=== PATIENT | male | born 1955 | race Caucasian/White ===

== ENCOUNTER 2016-11-28 13:09 | Inpatient (IN) | payer BC ==
[2016-11-28] MEDS ORDERED: methylPREDNISolone SOD SUCCI 125 MG/2 ML VIAL IV STA (13:37)
[2016-11-28] MEDS ORDERED: IPRATROPIUM-ALBUTEROL 3 ML NEB INHALATION STA (13:37)
[2016-11-28] MEDS ORDERED: ACETAMINOPHEN TAB 500 MG TAB PO STA (13:38)
[2016-11-28] MEDS ORDERED: LEVOFLOXACIN 500MG-D5W PMX 500 MG in DEXTROSE/WATER 1 100ML.BAG IVPB STA (13:52)
--- NOTE | 2016-11-28 13:55 | ED ---
General Adult HPI - General Source: patient, RN notes reviewed Mode of arrival: EMS Limitations: no limitations <Eriberto Benito - Last Filed: 11/28/16 15:06> <Dhruv Groves - Last Filed: 11/28/16 15:27> - General Chief complaint: Shortness of Breath Stated complaint: pneumonia Time Seen by Provider: 11/28/16 13:31 - History of Present Illness Initial comments: Patient 61-year-old male significant past medical history for COPD, who presents emergency room today by EMS, the chief complaint of pneumonia. Patient was at the family doctor's office had a chest x-ray obtained showing a left lobe pneumonia. Patient pulse ox was low at the doctor's office and was transferred by EMS. Patient did have breathing treatment at the office which improved some symptoms. Patient does admit to cough congestion over the last 4 days. Patient does admit to body aches and fever. He denies any other complaints. Patient denies any recent chest pain, back pain, abdominal pain, nausea or vomiting, numbness or tingling, dysuria or hematuria, constipation or diarrhea, headaches or visual changes, or any other complaints. (Eriberto Benito) - Related Data Home Medications Medication Instructions Recorded Confirmed Advair Inhaler 1 puff INHALATION RT-BID 01/06/15 01/06/15 Cholecalciferol [Vitamin D3] 5,000 unit PO HS 01/06/15 01/06/15 Diltiazem HCl [Cardizem] 90 mg PO HS 01/06/15 01/06/15 Losartan Potassium 50 mg PO HS 01/06/15 01/06/15 Simvastatin 40 mg PO HS 01/06/15 01/06/15 Tiotropium [place] [Spiriva] 1 puff IH RT-DAILY 01/06/15 01/06/15 Previous Rx's Medication Instructions Recorded Azithromycin [Zithromax] 500 mg PO DAILY #5 tab 01/08/15 Nicotine 21Mg/24Hr Patch [Habitrol] 1 patch TRANSDERM DAILY #14 patch 01/08/15 predniSONE 0 mg PO DIRECTED #30 tab 01/08/15 Albuterol Nebulized [Ventolin 2.5 mg INHALATION Q6H #120 nebu 01/09/15 Nebulized] Allergies Allergy/AdvReac Type Severity Reaction Status Date / Time No Known Allergies Allergy Verified 11/28/16 13:50 Review of Systems ROS Other: All systems not noted in ROS Statement are negative. <Eriberto Benito - Last Filed: 11/28/16 15:06> ROS Other: All systems not noted in ROS Statement are negative. <GermainDhruv B - Last Filed: 11/28/16 15:27> ROS Statement: Those systems with pertinent positive or pertinent negative responses have been documented in the HPI. 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, POLYPS REMOVED/BENIGN, NEPHROLITHIASIS History of Any Multi-Drug Resistant Organisms: None Reported Past Surgical History: Adenoidectomy, Cholecystectomy, Tonsillectomy Additional Past Surgical History / Comment(s): COLONOSCOPY Past Anesthesia/Blood Transfusion Reactions: No Reported Reaction Past Psychological History: No Psychological Hx Reported Smoking Status: Current every day smoker Past Alcohol Use History: None Reported Additional Past Alcohol Use History / Comment(s): STARTED SMOKING AT AGe 15- AND HE SMOKES 1 PPD Past Drug Use History: None Reported - Past Family History Mother Family Medical History: Cancer, Hypertension Additional Family Medical History / Comment(s): BREAST CANCER Sister(s) Family Medical History: Cancer Additional Family Medical History / Comment(s): BREAST Father Family Medical History: Hyperlipidemia, Myocardial Infarction ([place]) Additional Family Medical History / Comment(s): aneurysm, <Eriberto Benito - Last Filed: 11/28/16 15:06> General Exam Limitations: no limitations <Eriberto Benito - Last Filed: 11/28/16 15:06> General appearance: alert, in no apparent distress Head exam: Present: atraumatic, normocephalic, normal inspection Eye exam: Present: normal appearance, PERRL, EOMI. Absent: scleral icterus, conjunctival injection, periorbital swelling ENT exam: Present: normal exam, mucous membranes dry Neck exam: Present: normal inspection. Absent: tenderness, meningismus, lymphadenopathy Respiratory exam: Present: normal lung sounds bilaterally, respiratory distress , wheezes, accessory muscle use, decreased breath sounds, prolonged expiratory. Absent: rales, rhonchi, stridor Cardiovascular Exam: Present: regular rate, normal rhythm, tachycardia, normal heart sounds. Absent: systolic murmur, diastolic murmur, rubs, gallop, clicks GI/Abdominal exam: Present: soft, normal bowel sounds. Absent: distended, tenderness, guarding, rebound, rigid Extremities exam: Present: normal inspection, full ROM, normal capillary refill. Absent: tenderness, pedal edema, joint swelling, calf tenderness Back exam: Present: normal inspection Neurological exam: Present: alert, oriented X3, CN II-XII intact Psychiatric exam: Present: normal affect, normal mood Skin exam: Present: warm, dry, intact, normal color. Absent: rash <Dhruv Groves - Last Filed: 11/28/16 15:27> - General Exam Comments Initial Comments: General: The patient is awake and alert, in no distress, and does not appear acutely ill. Eye: Pupils are equal, round and reactive to light, extra-ocular movements are intact. No nystagmus. There is normal conjunctiva bilaterally. No signs of icterus. Ears, nose, mouth and throat: There are moist mucous membranes and no oral lesions. Neck: The neck is supple, there is no tenderness or JVD. Cardiovascular: There is a regular rate and rhythm. No murmur, rub or gallop is appreciated. Respiratory: Increased expiratory wheeze on the left. respirations are non- labored, breath sounds are equal. Nostridor, rales, or rhonchi. Gastrointestinal: Soft, non-distended, non-tender abdomen without masses or organomegaly noted. There is no rebound or guarding present. No CVA tenderness. Bowel sounds are unremarkable. Musculoskeletal: Normal ROM, no tenderness. Strength 5/5. Sensation intact. Pulses equal bilaterally 2+. Neurological: A&O x 3. CN II-XII intact, There are no obvious motor or sensory deficits. Coordination appears grossly intact. Speech is normal. Skin: Skin is warm and dry and no rashes or lesions are noted. Psychiatric: Cooperative, appropriate mood & affect, normal judgment. (Eriberto Benito) Course <Eriberto Benito - Last Filed: 11/28/16 15:06> <Dhruv Groves - Last Filed: 11/28/16 15:27> Vital Signs 11/28/16 11/28/16 11/28/16 13:40 14:27 14:35 Temperature 103.6 F H Pulse Rate 109 H 102 H 97 Respiratory 22 22 22 Rate Blood Pressure 149/71 166/75 O2 Sat by Pulse 93 L 91 L Oximetry 11/28/16 11/28/16 14:50 15:01 Temperature Pulse Rate 98 98 Respiratory Rate Blood Pressure O2 Sat by Pulse Oximetry - Reevaluation(s) Reevaluation #1: 11/28/16 15:26 Patient showing mild improvement after prolonged breathing treatment (Dhruv Groves) Medical Decision Making - Lab Data Result diagrams: 11/28/16 14:20 11/28/16 14:20 <Eriberto Benito - Last Filed: 11/28/16 15:06> - Lab Data Result diagrams: 11/28/16 14:20 11/28/16 14:20 <Dhruv Groves - Last Filed: 11/28/16 15:27> - Medical Decision Making Case discussed in detail with attending physician Dr. Groves.Patient's chest x- ray from outpatient was reviewed and does show a left sided pneumonia. Patient started on antibiotics of Levaquin and Zosyn here in the emergency room. Patient said labs obtained. Blood cultures pending. Patient will be admitted continued on broad-spectrum antibiotics and breathing treatments. (Eriberto Benito) 61 male ER for evaluation of severe pneumonia with COPD, hypoxia, patient will be admitted for fever control, fluid resuscitation and IV antibiotics. Continue breathing treatments and steroids. Patient will be monitored for cardiopulmonary resuscitation and evaluation (Dhruv Groves) - Lab Data Lab Results 11/28/16 11/28/16 11/28/16 Range/Units 14:20 14:20 14:20 WBC 9.0 (3.8-10.6) k/uL RBC 5.60 (4.30-5.90) m/uL Hgb 17.1 (13.0-17.5) gm/dL Hct 54.4 H (39.0-53.0) % MCV 97.0 (80.0-100.0) fL MCH 30.5 (25.0-35.0) pg MCHC 31.4 (31.0-37.0) g/dL RDW 14.6 (11.5-15.5) % Plt Count 139 L (150-450) k/uL Neutrophils % 83 % Lymphocytes % 8 % Monocytes % 7 % Eosinophils % 0 % Basophils % 0 % Neutrophils # 7.4 (1.3-7.7) k/uL Lymphocytes # 0.7 L (1.0-4.8) k/uL Monocytes # 0.6 (0-1.0) k/uL Eosinophils # 0.0 (0-0.7) k/uL Basophils # 0.0 (0-0.2) k/uL PT 12.0 (9.0-12.0) sec INR 1.2 (<1.1) APTT 26.5 (22.0-30.0) sec Sodium 135 L (137-145) mmol/L Potassium 4.6 (3.5-5.1) mmol/L Chloride 93 L (98-107) mmol/L Carbon Dioxide 33 H (22-30) mmol/L Anion Gap 9 mmol/L BUN 26 H (9-20) mg/dL Creatinine 1.28 H (0.66-1.25) mg/dL Est GFR (MDRD) Af Amer >60 (>60 ml/min/1.73 sqM) Est GFR (MDRD) Non-Af 57 (>60 ml/min/1.73 sqM) Glucose 154 H (74-99) mg/dL Plasma Lactic Acid Renard (0.7-2.0) mmol/L Calcium 8.5 (8.4-10.2) mg/dL Magnesium 2.0 (1.6-2.3) mg/dL Total Bilirubin 0.7 (0.2-1.3) mg/dL AST 42 (17-59) U/L ALT 45 (21-72) U/L Alkaline Phosphatase 67 (38-126) U/L Troponin I (0.000-0.034) ng/mL NT-Pro-B Natriuret Pep pg/mL Total Protein 6.7 (6.3-8.2) g/dL Albumin 3.7 (3.5-5.0) g/dL 11/28/16 11/28/16 11/28/16 Range/Units 14:20 14:20 14:20 WBC (3.8-10.6) k/uL RBC (4.30-5.90) m/uL Hgb (13.0-17.5) gm/dL Hct (39.0-53.0) % MCV (80.0-100.0) fL MCH (25.0-35.0) pg MCHC (31.0-37.0) g/dL RDW (11.5-15.5) % Plt Count (150-450) k/uL Neutrophils % % Lymphocytes % % Monocytes % % Eosinophils % % Basophils % % Neutrophils # (1.3-7.7) k/uL Lymphocytes # (1.0-4.8) k/uL Monocytes # (0-1.0) k/uL Eosinophils # (0-0.7) k/uL Basophils # (0-0.2) k/uL PT (9.0-12.0) sec INR (<1.1) APTT (22.0-30.0) sec Sodium (137-145) mmol/L Potassium (3.5-5.1) mmol/L Chloride (98-107) mmol/L Carbon Dioxide (22-30) mmol/L Anion Gap mmol/L BUN (9-20) mg/dL Creatinine (0.66-1.25) mg/dL Est GFR (MDRD) Af Amer (>60 ml/min/1.73 sqM) Est GFR (MDRD) Non-Af (>60 ml/min/1.73 sqM) Glucose (74-99) mg/dL Plasma Lactic Acid Renard 1.5 (0.7-2.0) mmol/L Calcium (8.4-10.2) mg/dL Magnesium (1.6-2.3) mg/dL Total Bilirubin (0.2-1.3) mg/dL AST (17-59) U/L ALT (21-72) U/L Alkaline Phosphatase (38-126) U/L Troponin I 0.041 H* (0.000-0.034) ng/mL NT-Pro-B Natriuret Pep 300 pg/mL Total Protein (6.3-8.2) g/dL Albumin (3.5-5.0) g/dL Critical Care Time Critical Care Time: Yes Total Critical Care Time: 31 <Dhruv Groves - Last Filed: 11/28/16 15:27> Disposition Time of Disposition: 15:00 <Eriberto Benito - Last Filed: 11/28/16 15:06> <Dhruv Groves - Last Filed: 11/28/16 15:27> Clinical Impression: Community acquired pneumonia Disposition: ADMITTED IP TO THIS HOSP Condition: Good Referrals: Nick Santo MD [Primary Care Provider] - 1-2 days
[2016-11-28] MEDS ORDERED: SODIUM CHLORIDE 0.9% 500 ML IV STA (14:17)
[2016-11-28] MEDS ORDERED: SODIUM CHLORIDE 0.9% 1,000 ML IV STA ×2 (14:17)
[2016-11-28] MEDS ORDERED: IBUPROFEN 800 MG TAB PO STA (14:17)
[2016-11-28] MEDS ORDERED: ALBUTEROL NEBULIZED 2.5 MG/3 ML INHALATION STA (14:18)
[2016-11-28] MEDS ORDERED: IPRATROPIUM 0.5 MG/2.5 ML NEBU INHALATION STA (14:18)
[2016-11-28] MEDS ORDERED: PIPERACILLIN-TAZOBACTAM 3.375 GM in DEXTROSE/WATER 1 50ML.BAG IVPB STA (14:21)
[2016-11-28 14:39] LABS: Basophils % (A) 0 %; CH 31.3; CHCM 32.4; Eosinophils % (A) 0 %; HCT 54.4 % (39.0-53.0); HDW 2.58; HGB 17.1 gm/dL (13.0-17.5); Luc % (Auto) 2; Lymphocytes # (A) 0.7 k/uL (1.0-4.8); Lymphocytes % (A) 8 %; MCH 30.5 pg (25.0-35.0); MCHC 31.4 g/dL (31.0-37.0); Mean Platelet Volume 7.6; Monocytes # (A) 0.6 k/uL (0-1.0); Monocytes % (A) 7 %; Neutrophils # (A) 7.4 k/uL (1.3-7.7); Neutrophils % (A) 83 %; RDW 14.6 % (11.5-15.5); WBC (Perox) 9.55
[2016-11-28 14:47] LABS: ALT 45 U/L (21-72); AST 42 U/L (17-59); Alkaline Phosphatase 67 U/L (38-126); Anion Gap 9 mmol/L; Blood Urea Nitrogen 26 mg/dL (9-20); Calcium 8.5 mg/dL (8.4-10.2); Carbon Dioxide 33 mmol/L (22-30); Chloride 93 mmol/L (98-107); Glucose 154 mg/dL (74-99); Non-African American GFR(MDRD) 57 (>60 ml/min/1.73 sqM); Potassium 4.6 mmol/L (3.5-5.1); Sodium 135 mmol/L (137-145); Total Bilirubin 0.7 mg/dL (0.2-1.3); Total Protein 6.7 g/dL (6.3-8.2)
[2016-11-28 14:49] LABS: INR 1.2 (<1.1); Partial Thromboplastin Time 26.5 sec (22.0-30.0)
[2016-11-28] MEDS ORDERED: SODIUM CHLORIDE 0.9% 1,000 ML IV ONE (15:01)
--- NOTE | 2016-11-28 15:38 | XR ---
EXAMINATION TYPE: XR chest 2V DATE OF EXAM: 11/28/2016 3:33 PM COMPARISON: 11/28/2016 TECHNIQUE: PA and lateral views submitted. HISTORY: Cough FINDINGS: Large area of consolidation with central lucency. Pleural-based thickening deformity of the right rib cage. Underlying COPD seen. Heart is enlarged. Left lower lobe infiltrate and tiny effusion noted. IMPRESSION: 1. Large area of consolidation with possible central cavitation may represent pneumonia or neoplasm. 2. Left lower lobe infiltrate. 3. COPD. 4. Cardiomegaly.
--- NOTE | 2016-11-28 16:26 | ED ---
Medical Decision Making - Medical Decision Making Case discussed in detail with attending physician Dr. Groves. Patient's troponin mildly elevated 0.041. CK MB index negative. Patient started on IV antibiotics also IV steroids and continue breathing treatments. Cardiology consult for elevated troponin. He does not have any chest pain. Does admit to improvement after breathing treatments here. He'll be continued to be monitored. EKG performed at 1536: Shows sinus tachycardia 104 bpm. Shows occasional PVCs. NM 134. QRS 94. QT/QTC 344/452. No acute ST changes as compared to previous EKG on 01/06/2015. - Lab Data Result diagrams: 11/28/16 14:20 11/28/16 14:20 Lab Results 11/28/16 11/28/16 11/28/16 Range/Units 14:20 14:20 14:20 WBC 9.0 (3.8-10.6) k/uL RBC 5.60 (4.30-5.90) m/uL Hgb 17.1 (13.0-17.5) gm/dL Hct 54.4 H (39.0-53.0) % MCV 97.0 (80.0-100.0) fL MCH 30.5 (25.0-35.0) pg MCHC 31.4 (31.0-37.0) g/dL RDW 14.6 (11.5-15.5) % Plt Count 139 L (150-450) k/uL Neutrophils % 83 % Lymphocytes % 8 % Monocytes % 7 % Eosinophils % 0 % Basophils % 0 % Neutrophils # 7.4 (1.3-7.7) k/uL Lymphocytes # 0.7 L (1.0-4.8) k/uL Monocytes # 0.6 (0-1.0) k/uL Eosinophils # 0.0 (0-0.7) k/uL Basophils # 0.0 (0-0.2) k/uL PT 12.0 (9.0-12.0) sec INR 1.2 (<1.1) APTT 26.5 (22.0-30.0) sec Sodium 135 L (137-145) mmol/L Potassium 4.6 (3.5-5.1) mmol/L Chloride 93 L (98-107) mmol/L Carbon Dioxide 33 H (22-30) mmol/L Anion Gap 9 mmol/L BUN 26 H (9-20) mg/dL Creatinine 1.28 H (0.66-1.25) mg/dL Est GFR (MDRD) Af Amer >60 (>60 ml/min/1.73 sqM) Est GFR (MDRD) Non-Af 57 (>60 ml/min/1.73 sqM) Glucose 154 H (74-99) mg/dL Plasma Lactic Acid Renard (0.7-2.0) mmol/L Calcium 8.5 (8.4-10.2) mg/dL Magnesium 2.0 (1.6-2.3) mg/dL Total Bilirubin 0.7 (0.2-1.3) mg/dL AST 42 (17-59) U/L ALT 45 (21-72) U/L Alkaline Phosphatase 67 (38-126) U/L Total Creatine Kinase (55-170) U/L CK-MB (CK-2) (0.0-2.4) ng/mL CK-MB (CK-2) Rel Index Troponin I (0.000-0.034) ng/mL NT-Pro-B Natriuret Pep pg/mL Total Protein 6.7 (6.3-8.2) g/dL Albumin 3.7 (3.5-5.0) g/dL 11/28/16 11/28/16 11/28/16 Range/Units 14:20 14:20 14:20 WBC (3.8-10.6) k/uL RBC (4.30-5.90) m/uL Hgb (13.0-17.5) gm/dL Hct (39.0-53.0) % MCV (80.0-100.0) fL MCH (25.0-35.0) pg MCHC (31.0-37.0) g/dL RDW (11.5-15.5) % Plt Count (150-450) k/uL Neutrophils % % Lymphocytes % % Monocytes % % Eosinophils % % Basophils % % Neutrophils # (1.3-7.7) k/uL Lymphocytes # (1.0-4.8) k/uL Monocytes # (0-1.0) k/uL Eosinophils # (0-0.7) k/uL Basophils # (0-0.2) k/uL PT (9.0-12.0) sec INR (<1.1) APTT (22.0-30.0) sec Sodium (137-145) mmol/L Potassium (3.5-5.1) mmol/L Chloride (98-107) mmol/L Carbon Dioxide (22-30) mmol/L Anion Gap mmol/L BUN (9-20) mg/dL Creatinine (0.66-1.25) mg/dL Est GFR (MDRD) Af Amer (>60 ml/min/1.73 sqM) Est GFR (MDRD) Non-Af (>60 ml/min/1.73 sqM) Glucose (74-99) mg/dL Plasma Lactic Acid Renard 1.5 (0.7-2.0) mmol/L Calcium (8.4-10.2) mg/dL Magnesium (1.6-2.3) mg/dL Total Bilirubin (0.2-1.3) mg/dL AST (17-59) U/L ALT (21-72) U/L Alkaline Phosphatase (38-126) U/L Total Creatine Kinase (55-170) U/L CK-MB (CK-2) (0.0-2.4) ng/mL CK-MB (CK-2) Rel Index Troponin I 0.041 H* (0.000-0.034) ng/mL NT-Pro-B Natriuret Pep 300 pg/mL Total Protein (6.3-8.2) g/dL Albumin (3.5-5.0) g/dL 11/28/16 Range/Units 14:20 WBC (3.8-10.6) k/uL RBC (4.30-5.90) m/uL Hgb (13.0-17.5) gm/dL Hct (39.0-53.0) % MCV (80.0-100.0) fL MCH (25.0-35.0) pg MCHC (31.0-37.0) g/dL RDW (11.5-15.5) % Plt Count (150-450) k/uL Neutrophils % % Lymphocytes % % Monocytes % % Eosinophils % % Basophils % % Neutrophils # (1.3-7.7) k/uL Lymphocytes # (1.0-4.8) k/uL Monocytes # (0-1.0) k/uL Eosinophils # (0-0.7) k/uL Basophils # (0-0.2) k/uL PT (9.0-12.0) sec INR (<1.1) APTT (22.0-30.0) sec Sodium (137-145) mmol/L Potassium (3.5-5.1) mmol/L Chloride (98-107) mmol/L Carbon Dioxide (22-30) mmol/L Anion Gap mmol/L BUN (9-20) mg/dL Creatinine (0.66-1.25) mg/dL Est GFR (MDRD) Af Amer (>60 ml/min/1.73 sqM) Est GFR (MDRD) Non-Af (>60 ml/min/1.73 sqM) Glucose (74-99) mg/dL Plasma Lactic Acid Renard (0.7-2.0) mmol/L Calcium (8.4-10.2) mg/dL Magnesium (1.6-2.3) mg/dL Total Bilirubin (0.2-1.3) mg/dL AST (17-59) U/L ALT (21-72) U/L Alkaline Phosphatase (38-126) U/L Total Creatine Kinase 299 H (55-170) U/L CK-MB (CK-2) 0.7 (0.0-2.4) ng/mL CK-MB (CK-2) Rel Index 0.2 Troponin I (0.000-0.034) ng/mL NT-Pro-B Natriuret Pep pg/mL Total Protein (6.3-8.2) g/dL Albumin (3.5-5.0) g/dL Disposition Clinical Impression: Community acquired pneumonia, Hypoxic, Elevated troponin Disposition: ADMITTED IP TO THIS HOSP Condition: Good
[2016-11-28 16:30] LABS: Creatine Kinase MB 0.7 ng/mL (0.0-2.4)
[2016-11-28] MEDS ORDERED: NITROGLYCERIN SL TABS 0.4 MG TAB SUBLINGUAL PRN (16:38)
[2016-11-28] MEDS ORDERED: ASPIRIN 81 MG CHEW PO STA (16:38)
[2016-11-28] MEDS: IPRATROPIUM-ALBUTEROL 3 ML NEB INHALATION SCH ×2 (16:41→19:20)
[2016-11-28] MEDS ORDERED: INSULIN LISPRO (humaLOG) 300 UNIT/3 ML VIAL SQ SCH (17:30)
[2016-11-28 20:41] LABS: Glucose,Whole Blood 348 mg/dL (75-99)
[2016-11-28 21:06] LABS: Creatine Kinase MB 1.3 ng/mL (0.0-2.4); Troponin I 0.028 ng/mL (0.000-0.034)
[2016-11-28] MEDS: methylPREDNISolone SOD SUCCI 40 MG/ML 1 ML VIAL IV SCH (21:06)
[2016-11-28] MEDS: INSULIN LISPRO (humaLOG) 300 UNIT/3 ML VIAL SQ SCH (21:06)
[2016-11-28] MEDS: ENOXAPARIN 40 MG/0.4 ML SYRINGE SQ SCH (21:21)
[2016-11-28] MEDS: DILTIAZEM CD 180 MG CAP.ER.24H PO SCH (21:21)
[2016-11-28] MEDS: MAGNESIUM OXIDE 400 MG TAB PO SCH (21:21)
[2016-11-28] MEDS: PIPERACILLIN-TAZOBACTAM 3.375 GM in DEXTROSE/WATER 1 50ML.BAG IVPB SCH (23:46)
[2016-11-29] MEDS ORDERED: methylPREDNISolone SOD SUCCI 125 MG/2 ML VIAL IV SCH
[2016-11-29] MEDS: IPRATROPIUM-ALBUTEROL 3 ML NEB INHALATION SCH ×7 (00:01→21:33)
[2016-11-29 03:42] LABS: Cholesterol 161 mg/dL (<200); HDL Cholesterol 43 mg/dL (40-60); Triglycerides 111 mg/dL (<150)
[2016-11-29 04:14] LABS: Troponin I 0.012 ng/mL (0.000-0.034)
[2016-11-29 04:19] LABS: Creatine Kinase MB 2.8 ng/mL (0.0-2.4)
[2016-11-29 06:12] LABS: Glucose,Whole Blood 220 mg/dL (75-99)
[2016-11-29] MEDS: INSULIN LISPRO (humaLOG) 300 UNIT/3 ML VIAL SQ SCH ×4 (06:53→21:38)
--- NOTE | 2016-11-29 08:37 | HP ---
DATE OF ADMISSION: 11/28/2016 PRESENTING COMPLAINT: Not feeling well. HISTORY OF PRESENTING COMPLAINT: This is a pleasant 61-year-old patient of Dr. Santo. Chronic stable medical conditions include hypertension, hyperlipidemia, osteoarthritis. The patient presented with 2 to 3 days of not feeling well, headache, nausea, cough, shortness of breath, congestive, had a fever 100 so he presented to the ER, tired, rundown. REVIEW OF SYSTEMS: CONSTITUTIONAL: Fever, tired. HEENT: None. RESPIRATORY: As above. CARDIOVASCULAR: None. GASTROINTESTINAL: None. GENITOURINARY: None. MUSCULOSKELETAL: Aches and pains in the joints. DERMATOLOGICAL: None. HEMATOLOGICAL: None. LYMPHATICS: None. PSYCHIATRY: None. NEUROLOGICAL: None. PAST MEDICAL HISTORY: History of COPD, hyperlipidemia, hypertension, osteoarthritis, sigmoid diverticulitis, arthritis to the knees and lower back, nephrolithiasis. PAST SURGICAL HISTORY: Adenoidectomy, cholecystectomy, tonsillectomy. SOCIAL HISTORY: Lives with his . Patient started smoking at the age of 15; smoked 1.5 packs a day, quit in 2014. Family history of hyperlipidemia, hypertension, [place], breast cancer. HOME MEDICATIONS: 1. Dulera 100/5, 1 puff b.i.d. 2. Motrin 200 mg q.6 p.r.n. 3. Magnesium oxide 250 mg p.o. q.8. 4. Cardizem 180 mg p.o. q.h.s. 5. Vitamin D3 5000 p.o. q.h.s. ALLERGIES: None. PHYSICAL EXAMINATION: Vital signs on presentation: Temperature 103.6, pulse 102, respirations 22, blood pressure 129/71, pulse ox 93% on 3-L. GENERAL APPEARANCE: Well built, BMI of 39%, lying in bed, tired-appearing. EYES: Pupils equal. Conjunctivae normal. HEENT: Oral cavity normal. NECK: JVD unable to assess. Mass not palpable. RESPIRATORY: Effort normal. Diminished breath sounds. Some basal crackles, some bronchial breathing on the right side. CARDIOVASCULAR: First and second sounds normal. No edema. ABDOMEN: Distended, soft. Liver and spleen not palpable. LYMPHATIC: No lymph node palpable in neck or axillae. PSYCHIATRY: Alert and oriented x3. Mood and affect normal. NEUROLOGICAL: Pupils equal. Cranial nerves grossly intact. Power and sensation grossly intact. INVESTIGATIONS: White count 9, hemoglobin 7.1, platelets 139, potassium 4.6, BUN 26, creatinine 1.28. Troponin 0.041, glucose 348. Chest x-ray; large area of consolidation, possible central cavitation. Left lower lobe infiltrate, COPD, cardiomegaly. ASSESSMENT: 1. Multilobar pneumonia, suspect gram-negative organism, present on admission, causing severe sepsis. 2. Acute chronic obstructive pulmonary disease exacerbation in an ex-smoker. 3. Obesity, body mass index 39.6. 4. Primary osteoarthritis of multiple joints, bilateral. 5. Hyperlipidemia. 6. Essential hypertension. 7. Sigmoid diverticulosis. 8. Acute renal failure, probably from acute tubular necrosis from sepsis. 9. Troponin leak, likely from underlying sepsis. Doubt to be a primary cardiac cause. 10. Hyperglycemia. Need to consider diabetes type 2. PLAN: Patient is put on IV Solu-Medrol, IV Zosyn, Levaquin, DuoNeb. Home medications will be resumed. Will also give IV fluids and check CBC and electrolytes in the morning. Pulmonary is being consulted. Care was discussed with the patient and at the bedside. Will follow.
[2016-11-29] MEDS: ASPIRIN 325 MG TAB PO SCH (09:29)
[2016-11-29] MEDS: PIPERACILLIN-TAZOBACTAM 3.375 GM in DEXTROSE/WATER 1 50ML.BAG IVPB SCH ×2 (09:29→17:25)
[2016-11-29] MEDS: methylPREDNISolone SOD SUCCI 40 MG/ML 1 ML VIAL IV SCH ×2 (09:31→21:39)
--- NOTE | 2016-11-29 09:58 | ECHOF ---
Referral Reason:pos trops MEASUREMENTS -------- HEIGHT: 185.4 cm WEIGHT: 136.1 kg BP: 129/70 RVIDd: 3.5 cm (< 3.3) IVSd: 1.3 cm (0.6 - 1.1) LVIDd: 6.5 cm (3.9 - 5.3) LVPWd: 1.3 cm (0.6 - 1.1) IVSs: 1.7 cm LVIDs: 5.1 cm LVPWs: 1.9 cm LAESV Index (A-L): 17.06 ml/m Ao Diam: 3.9 cm (2.0 - 3.7) AV Cusp: 2.0 cm (1.5 - 2.6) LA Diam: 4.3 cm (2.7 - 3.8) MV EXCURSION: 22.993 mm (> 18.000) MV EF SLOPE: 87 mm/s (70 - 150) EPSS: 1.3 cm MV E Jan: 1.10 m/s MV DecT: 223 ms MV A Jan: 1.22 m/s MV E/A Ratio: 0.90 RAP: 5.00 mmHg RVSP: 32.45 mmHg FINDINGS -------- Undetermined rhythm. This was a technically adequate study. There is mild concentric left ventricular hypertrophy. There is normal global left ventricular contractility. Overall left ventricular systolic function is normal with, an EF between 55 - 60 %. The right ventricle is normal in size and function. Moderator band is visualized in the right ventricular apex. Normal LA size by volume 22+/-6 ml/m2. The right atrium is normal in size. Aortic valve is trileaflet and is mildly thickened. There is no evidence of aortic regurgitation. There is no evidence of aortic stenosis. Mild mitral annular calcification present. There is trace mitral regurgitation. Trace tricuspid regurgitation present. There is no evidence of pulmonary hypertension. The right ventricular systolic pressure, as measured by Doppler, is 32.45mmHg. The pulmonic valve was not well visualized. The aortic root size is normal. Echo free space may represent effusion or a pericardial fat pad. There is no pericardial effusion. CONCLUSIONS -------- 1. Undetermined rhythm. 2. There is trace mitral regurgitation. 3. Trace tricuspid regurgitation present. 4. There is no evidence of pulmonary hypertension. 5. The right ventricular systolic pressure, as measured by Doppler, is 32.45mmHg. 6. The pulmonic valve was not well visualized. 7. The aortic root size is normal. 8. Echo free space may represent effusion or a pericardial fat pad. 9. There is no pericardial effusion. 10. There is mild concentric left ventricular hypertrophy. 11. There is normal global left ventricular contractility. 12. Overall left ventricular systolic function is normal with, an EF between 55 - 60 %. 13. The right ventricle is normal in size and function. 14. Moderator band is visualized in the right ventricular apex. 15. Normal LA size by volume 22+/-6 ml/m2. 16. Aortic valve is trileaflet and is mildly thickened. 17. Mild mitral annular calcification present. WEBBING SUPERVISOR: Jose Miguel Jaimes RDCS
--- NOTE | 2016-11-29 11:26 | P.CRDCN ---
History of Present Illness Consult date: 11/29/16 History of present illness: This is a 61-year-old gentleman with history of hypertension, hyperlipidemia and osteoarthritis. Patient presented to the hospital with complaints of fever , cough, denies body aches. He apparently was feeling well until last Sunday and came back from work feeling fine. However next morning he woke up with generalized body aches and cough and congestion. In the emergency room patient was found to have evidence of a multilobular pneumonia. Blood work showed a mildly elevated troponin values. We are asked to see the patient for further evaluation. He is currently being treated with antibiotics. His EKGs did not reveal any acute changes. Patient denied any chest pain or shortness of breath. His echocardiogram showed normal LV function. At this point, his symptoms are mostly pneumonia related. No further workup at this time. Once patient's of pulmonary status improves, further cardiac workup including stress test to be considered because of risk factors and family history of ischemic heart disease. Patient will be followed in the office after upon discharge Review of Systems REVIEW OF SYSTEMS: CONSTITUTIONAL:. Patient complains of generalized body aches, cough and fever. EYES: Denies diplopia, blurring of vision EARS, NOSE, MOUTH, THROAT: Denies headaches, denies sore throat. CARDIOVASCULAR: As per the chart RESPIRATORY: As per the chart GASTROINTESTINAL: Denies change in appetite, denies abdominal pain, denies diarrhea GENITOURINARY: Denies hematuria, denies infections. MUSKULOSKELETAL: Denies pain, denies swelling. Denies any cramps or claudication INTEGUMENTARY: Denies rash, denies eczema. NEUROLOGICAL: Denies focal weakness, or visual disturbance. Denies any dizziness or syncope PSYCHIATRIC: Denies anxiety, denies depression. HEMATOLOGIC/LYMPHATIC: Denies any bleeding, denies enlarged lymph nodes. Past Medical History Past Medical History: Asthma, COPD, Hyperlipidemia, Hypertension, Osteoarthritis (OA) Additional Past Medical History / Comment(s): SIG DIVERTICLOSIS, ARTHRITIS TO KNEES AND LOWER BACK,djd POLYPS REMOVED/BENIGN, NEPHROLITHIASIS,emphysema, tracheobronchitis History of Any Multi-Drug Resistant Organisms: None Reported Past Surgical History: Adenoidectomy, Cholecystectomy, Tonsillectomy Additional Past Surgical History / Comment(s): COLONOSCOPY Past Anesthesia/Blood Transfusion Reactions: No Reported Reaction Past Psychological History: No Psychological Hx Reported Additional Psychological History / Comment(s): PT TATI WITH HIS KAT IN A SINGLE LEVEL HOME THAT HAS 2 STEPS IN FRONT OR 1 STEP THRU BACK DOOR TO GET INTO HOME.BASEMENT HAS 10 STEPS. 1 INDOOR DOG. PT INDEPENDANT. HAS A NEBULIZER. NO OUTSIDE SERVICES. Smoking Status: Former smoker Past Alcohol Use History: None Reported Additional Past Alcohol Use History / Comment(s): STARTED SMOKING AT [age]Ge 15- AND HE SMOKED 1.5 PPD, QUIT Past Drug Use History: None Reported - Past Family History Mother Family Medical History: Cancer, Hyperlipidemia, Hypertension, Myocardial Infarction ([place]), Osteoarthritis (OA), Renal Disease Additional Family Medical History / Comment(s): BREAST CANCER, BLADDER CANCER X2 , CLL, SPINAL STENOSIS, OSTEOPOROSIS Sister(s) Family Medical History: Cancer Additional Family Medical History / Comment(s): BREAST Father Family Medical History: Hyperlipidemia, Hypertension, Liver Disease, Myocardial Infarction ([place]) Additional Family Medical History / Comment(s): AAA, CARDIAC PROBLEMS Medications and Allergies Home Medications Medication Instructions Recorded Confirmed Type Cholecalciferol [Vitamin D3] 5,000 unit PO HS 01/06/15 11/28/16 History Diltiazem HCl [Cardizem] 180 mg PO HS 01/06/15 11/28/16 History Ibuprofen [Motrin] 200 mg PO Q6HR PRN 11/28/16 11/28/16 History Magnesium Oxide [Mag-Ox] 250 mg PO Q48H 11/28/16 11/28/16 History Mometasone/Formoterol [Dulera 100 1 puff INHALATION RT-BID 11/28/16 11/28/16 History Mcg/5 Mcg Inhaler] Allergies Allergy/AdvReac Type Severity Reaction Status Date / Time No Known Allergies Allergy Verified 11/28/16 16:26 Physical Exam Vitals: Vital Signs Temp Pulse Pulse Resp BP BP Pulse Ox 11/29/16 09:28 16 96 11/29/16 07:50 98.3 F 89 18 129/70 88 L 11/29/16 07:04 94 11/29/16 06:55 89 11/29/16 04:00 97.2 F L 90 18 151/63 91 L 11/29/16 00:00 97.8 F 89 24 128/73 95 11/28/16 19:55 98.0 F 91 16 128/68 91 L 11/28/16 19:31 82 16 11/28/16 19:22 82 16 11/28/16 17:15 99.4 F 93 18 140/59 96 11/28/16 16:09 100.2 F H 103 H 18 153/65 94 L 11/28/16 15:15 98 11/28/16 15:01 98 11/28/16 14:50 98 11/28/16 14:35 97 22 11/28/16 14:27 102 H 22 166/75 91 L 11/28/16 13:40 103.6 F H 109 H 22 149/71 93 L Intake and Output 11/28/16 11/29/16 11/29/16 22:59 06:59 14:59 Intake Total 50 600 50 Output Total 700 Balance 50 -100 50 Intake: Intake, IV Titration 50 600 50 Amount Piperacillin-Tazobactam 3 50 .375 gm In Dextrose/Water 1 50ml.bag @ 12.5 mls/hr IVPB ONCE STA Rx#: [id number] Piperacillin-Tazobactam 3 50 .375 gm In Dextrose/Water 1 50ml.bag @ 12.5 mls/hr IVPB Q8HR [facility] Rx#: [id number] Sodium Chloride 0.9% 1, 600 000 ml @ 100 mls/hr IV . Q10H ONE Rx#:[id number] Output: Urine 700 Other: Voiding Method Urinal Urinal # Voids 1 # Bowel Movements 1 Weight 136.078 kg GENERAL EXAM: Patient is alert and oriented and doesn't appear to be in any acute distress HEENT: Normocephalic. Normal reaction of pupils, equal size, normal range of extraocular motion. No erythema or exudates in the throat. NECK: No masses, no nuchal rigidity. CHEST: No chest wall deformity. LUNGS: Equal air entry with no crackles or wheeze. HEART: S1 and S2 normal with no audible mumurs or gallops. Regular rhythm, femorals equal on both sides.. ABDOMEN: No hepatosplenomegaly, normal bowel sounds, no guarding or rigidity. SKIN: No rashes CENTRAL NERVOUS SYSTEM: No focal deficits. EXTREMITIES: No cyanosis, clubbing or edema. Results 11/28/16 14:20 11/28/16 14:20 Cardiac Enzymes 11/28/16 11/28/16 11/28/16 Range/Units 14:20 14:20 14:20 AST 42 (17-59) U/L CK-MB (CK-2) 0.7 (0.0-2.4) ng/mL Troponin I 0.041 H* (0.000-0.034) ng/mL 11/28/16 11/29/16 Range/Units 19:58 02:57 AST (17-59) U/L CK-MB (CK-2) 1.3 2.8 H* (0.0-2.4) ng/mL Troponin I 0.028 0.012 (0.000-0.034) ng/mL Coagulation 11/28/16 Range/Units 14:20 PT 12.0 (9.0-12.0) sec APTT 26.5 (22.0-30.0) sec Lipids 11/29/16 Range/Units 02:57 Triglycerides 111 (<150) mg/dL Cholesterol 161 (<200) mg/dL HDL Cholesterol 43 (40-60) mg/dL CBC 11/28/16 Range/Units 14:20 WBC 9.0 (3.8-10.6) k/uL RBC 5.60 (4.30-5.90) m/uL Hgb 17.1 (13.0-17.5) gm/dL Hct 54.4 H (39.0-53.0) % Plt Count 139 L (150-450) k/uL Comprehensive Metabolic Panel 11/28/16 Range/Units 14:20 Sodium 135 L (137-145) mmol/L Potassium 4.6 (3.5-5.1) mmol/L Chloride 93 L (98-107) mmol/L Carbon Dioxide 33 H (22-30) mmol/L BUN 26 H (9-20) mg/dL Creatinine 1.28 H (0.66-1.25) mg/dL Glucose 154 H (74-99) mg/dL Calcium 8.5 (8.4-10.2) mg/dL AST 42 (17-59) U/L ALT 45 (21-72) U/L Alkaline Phosphatase 67 (38-126) U/L Total Protein 6.7 (6.3-8.2) g/dL Albumin 3.7 (3.5-5.0) g/dL Current Medications Generic Name Dose Route Start Last Admin Trade Name Freq PRN Reason Stop Dose Admin Albuterol/Ipratropium 3 ml 11/28/16 16:00 11/29/16 06:54 Duoneb 0.5 Mg-3 Mg/3 Ml Soln INHALATION 3 ml RT-Q4H [facility]MEL Administration Aspirin 325 mg 11/29/16 09:00 11/29/16 09:29 Aspirin PO 325 mg DAILY [facility]MEL Administration Diltiazem HCl 180 mg 11/28/16 21:00 11/28/16 21:21 Cardizem Cd PO 180 mg HS [facility] Administration Enoxaparin Sodium 40 mg 11/28/16 21:00 11/28/16 21:21 Lovenox SQ 40 mg DAILY@2100 [facility]MEL Administration Levofloxacin 750 mg/ IV 150 mls @ 100 mls/hr 11/29/16 14:00 Solution IVPB Q24H CARMEL Piperacillin/Tazobactam/ 50 mls @ 12.5 mls/hr 11/29/16 00:00 11/29/16 09:29 Dextrose 3.375 gm/ IV Solution IVPB 12.5 mls/hr Q8HR [facility] Administration Insulin Human Lispro 0 unit 11/28/16 21:00 11/29/16 06:53 Humalog SQ 7 unit ACHS CARMEL Administration Protocol Magnesium Oxide 400 mg 11/28/16 21:00 11/28/16 21:21 Mag-Ox PO 400 mg Q48H [facility] Administration Methylprednisolone Sodium Succinate 40 mg 11/28/16 21:00 11/29/16 09:31 Solu-Medrol IV 40 mg Q12HR [facility] Administration Nitroglycerin 0.4 mg 11/28/16 16:38 Nitrostat SUBLINGUAL Q5M PRN Chest Pain Intake and Output 11/28/16 11/29/16 11/29/16 22:59 06:59 14:59 Intake Total 50 600 50 Output Total 700 Balance 50 -100 50 Intake: Intake, IV Titration 50 600 50 Amount Piperacillin-Tazobactam 3 50 .375 gm In Dextrose/Water 1 50ml.bag @ 12.5 mls/hr IVPB ONCE STA Rx#: [id number] Piperacillin-Tazobactam 3 50 .375 gm In Dextrose/Water 1 50ml.bag @ 12.5 mls/hr IVPB Q8HR [facility] Rx#: [id number] Sodium Chloride 0.9% 1, 600 000 ml @ 100 mls/hr IV . Q10H ONE Rx#:[id number] Output: Urine 700 Other: Voiding Method Urinal Urinal # Voids 1 # Bowel Movements 1 Weight 136.078 kg 11/28/16 14:20 11/28/16 14:20 EKG Interpretations (text) Sinus rhythm and sinus tachycardia with a left axis deviation. Assessment and Plan (1) Community acquired pneumonia Status: Acute (2) Elevated troponin Status: Acute (3) Acute exacerbation of chronic obstructive airways disease Status: Acute Plan: This patient is primarily admitted with pneumonia. Troponins levels are elevated but the clinical picture is not consistent with acute coronary syndrome. Continue antibiotics. Once patient's clinical status stable, patient will be followed as an outpatient. Further evaluation by stress test will be done as an outpatient.
[2016-11-29 11:29] LABS: Glucose,Whole Blood 176 mg/dL (75-99)
[2016-11-29 12:18] LABS: Hemoglobin A1C 6.7 % (4.2-6.1)
[2016-11-29 15:01] VITALS: BMI 39.5
[2016-11-29] MEDS: LEVOFLOXACIN 750MG-D5W PMX 750 MG in DEXTROSE/WATER 1 150ML.BAG IVPB SCH (15:57)
--- NOTE | 2016-11-29 16:14 | PN ---
DATE OF SERVICE: 11/29/2016 PRESENTING COMPLAINT: "Not feeling well." INTERVAL HISTORY: This is a 61-year-old male who presented to the emergency department with 2 to 3 days of not feeling well with associated headache, nausea, cough, shortness of breath, congested and fever. Today patient is lying in bed. No acute distress noted or voiced. Patient states he still does not feel well. No nausea. No vomiting. No fever. Review of systems done for constitutional, cardiovascular, GI, pulmonary, with relevant findings as above. CURRENT MEDICATIONS: 1. Zosyn IV. 2. Levofloxacin IV. 3. Solu-Medrol. 4. Insulin. 5. Lovenox. 6. Aspirin. 7. DuoNeb. PHYSICAL EXAMINATION: VITAL SIGNS: Temperature 97.4, respirations 18, pulse 98, blood pressure 137/79, oxygen saturation 92% on 2 L. GENERAL APPEARANCE: Patient looks tired, worn out, and looks ill. EYES: Pupils equal. Conjunctivae normal. NECK: JVD not raised. Mass not palpable. LUNGS: Diminished bilaterally. RESPIRATORY: Effort normal, unlabored. CARDIOVASCULAR: First and second sounds noted. No edema. ABDOMEN: Soft, nontender. Liver and spleen not palpable. PSYCHIATRY: Alert and oriented x3. Mood and affect normal. INVESTIGATIONS: Blood glucose 176. CK-MB 2.8. Echocardiogram shows left ventricular hypertrophy, EF between 55% and 60%. ASSESSMENT: 1. Multi-lobar pneumonia, suspect Gram-negative organism, present on admission, causing severe sepsis. 2. Acute on chronic obstructive pulmonary disease exacerbation in an ex-smoker. 3. Obesity; body mass index of 39.6. 4. Primary osteoarthritis of multiple joints, bilateral. 5. Hyperlipidemia. 6. Essential hypertension. 7. Sigmoid diverticulosis. 8. Acute renal failure, probably from acute tubular necrosis from sepsis. 9. Troponin leak, likely from underlying sepsis. Doubt to be a primary cardiac cause. 10. Hyperglycemia. Need to consider diabetes, type 2. PLAN: Patient will continue on Solu-Medrol, IV Zosyn and Levaquin, DuoNeb and IV fluids. Cardiology and Pulmonology are both on the case, and we will await their recommendations. The patient was seen and examined by nurse practitioner, Tamiko Beckford, and all elements of the case were discussed with attending, Dr. Haley.
--- NOTE | 2016-11-29 17:40 | P.CNPUL ---
History of Present Illness Consult date: 11/29/16 Requesting physician: Aristeo Haley Reason for consult: dyspnea, abnormal CXR/CT Chief complaint: Shortness of breath, cough, congestion History of present illness: This is a very pleasant 61-year-old gentleman who follows with Dr. Santo as his primary care physician. He has a history of hyperlipidemia, hypertension, chronic obstructive pulmonary disease with previous smoking history. He is also morbidly obese. He had recently undergone a [facility] home sleep study a few days back and has not heard back. The patient does have clinical features of obstructive sleep apnea. He has been seen by Dr. Rodriguez in the past. He presented here on 11/28/2016 with complaints of worsening shortness of breath, cough and congestion. His chest x-ray revealed a large area of consolidation with possible central cavitation possibly representing pneumonia versus neoplasm. There is also evidence of COPD and cardiomegaly. The patient states he did have a temperature at home he did have chills. He did present with an admission temperature of 103.6. He was tachycardic. He was hypoxic and did require 3 L/m per nasal cannula to maintain O2 saturations in the 90s. He has not been hypotensive. No leukocytosis. Lactic acid 1.5. He did have mild acute renal failure with a creatinine of 1.28. His troponin was 300. Troponins were negative. Echocardiogram did not reveal any significant abnormalities. He is seen today in consultation on the regular medical floor. He is awake and alert in no acute distress. He states he is feeling slightly better today as compared to yesterday but still short of breath with minimal exertion. He is wheezing. He has a loose nonproductive cough. No chills or night sweats. He is afebrile. Review of Systems 14 point review of system was conducted. All negative other than as mentioned in the HPI. Past Medical History Past Medical History: Asthma, COPD, Hyperlipidemia, Hypertension, Osteoarthritis (OA) Additional Past Medical History / Comment(s): SIG DIVERTICLOSIS, ARTHRITIS TO KNEES AND LOWER BACK,djd POLYPS REMOVED/BENIGN, NEPHROLITHIASIS,emphysema, tracheobronchitis History of Any Multi-Drug Resistant Organisms: None Reported Past Surgical History: Adenoidectomy, Cholecystectomy, Tonsillectomy Additional Past Surgical History / Comment(s): COLONOSCOPY Past Anesthesia/Blood Transfusion Reactions: No Reported Reaction Past Psychological History: No Psychological Hx Reported Additional Psychological History / Comment(s): PT [place] WITH HIS KAT IN A SINGLE LEVEL HOME THAT HAS 2 STEPS IN FRONT OR 1 STEP THRU BACK DOOR TO GET INTO HOME.BASEMENT HAS 10 STEPS. 1 INDOOR DOG. PT INDEPENDANT. HAS A NEBULIZER. NO OUTSIDE SERVICES. Smoking Status: Former smoker Past Alcohol Use History: None Reported Additional Past Alcohol Use History / Comment(s): STARTED SMOKING AT [age]Ge 15- AND HE SMOKED 1.5 PPD, QUIT -2014 Past Drug Use History: None Reported - Past Family History Mother Family Medical History: Cancer, Hyperlipidemia, Hypertension, Myocardial Infarction ([place]), Osteoarthritis (OA), Renal Disease Additional Family Medical History / Comment(s): BREAST CANCER, BLADDER CANCER X2 , CLL, SPINAL STENOSIS, OSTEOPOROSIS Sister(s) Family Medical History: Cancer Additional Family Medical History / Comment(s): BREAST Father Family Medical History: Hyperlipidemia, Hypertension, Liver Disease, Myocardial Infarction ([place]) Additional Family Medical History / Comment(s): AAA, CARDIAC PROBLEMS Medications and Allergies Home Medications Medication Instructions Recorded Confirmed Type Cholecalciferol [Vitamin D3] 5,000 unit PO HS 01/06/15 11/28/16 History Diltiazem HCl [Cardizem] 180 mg PO HS 01/06/15 11/28/16 History Ibuprofen [Motrin] 200 mg PO Q6HR PRN 11/28/16 11/28/16 History Magnesium Oxide [Mag-Ox] 250 mg PO Q48H 11/28/16 11/28/16 History Mometasone/Formoterol [Dulera 100 1 puff INHALATION RT-BID 11/28/16 11/28/16 History Mcg/5 Mcg Inhaler] Allergies Allergy/AdvReac Type Severity Reaction Status Date / Time No Known Allergies Allergy Verified 11/28/16 16:26 Physical Exam Vitals: Vital Signs Temp Pulse Pulse Resp BP BP Pulse Ox 11/29/16 16:12 92 11/29/16 16:02 90 11/29/16 16:00 98.6 F 89 20 136/81 91 L 11/29/16 12:36 88 11/29/16 12:18 85 11/29/16 12:00 97.4 F L 98 18 137/79 92 L 11/29/16 11:55 89 16 11/29/16 09:28 16 96 11/29/16 07:50 98.3 F 89 18 129/70 88 L 11/29/16 07:04 94 11/29/16 06:55 89 11/29/16 04:00 97.2 F L 90 18 151/63 91 L 11/29/16 00:00 97.8 F 89 24 128/73 95 11/28/16 19:55 98.0 F 91 16 128/68 91 L 11/28/16 19:31 82 16 11/28/16 19:22 82 16 Intake and Output 11/29/16 11/29/16 11/29/16 06:59 14:59 22:59 Intake Total 600 290 360 Output Total 700 Balance -100 290 360 Intake: Intake, IV Titration 600 50 Amount Piperacillin-Tazobactam 3 50 .375 gm In Dextrose/Water 1 50ml.bag @ 12.5 mls/hr IVPB Q8HR [facility] Rx#: [id number] Sodium Chloride 0.9% 1, 600 000 ml @ 100 mls/hr IV . Q10H ONE Rx#:[id number] Oral 240 360 Output: Urine 700 Other: Voiding Method Urinal Urinal Urinal # Voids 2 3 # Bowel Movements 1 Weight 136.078 kg 136.078 kg Patient Weight 11/30/16 06:59 Weight 136.078 kg GENERAL EXAM: Alert, active, comfortable in no apparent distress. HEAD: Normocephalic. EYES: Normal reaction of pupils, equal size. NOSE: Clear with pink turbinates. THROAT: No erythema or exudates. NECK: No masses, no JVD. CHEST: No chest wall deformity. LUNGS: Equal air entry with bilateral end expiratory wheeze, few scattered rhonchi.. CVS: S1 and S2 normal with no audible mumurs, regular rhythm. ABDOMEN: No hepatosplenomegaly, normal bowel sounds, no guarding or rigidity. SPINE: No scoliosis or deformity SKIN: No rashes CENTRAL NERVOUS SYSTEM: No focal deficits, tone is normal in all 4 extremities. Extremities: There is trace peripheral edema. No clubbing, no cyanosis. Peripheral pulses are intact. Results - Laboratory Findings CBC and BMP: 11/28/16 14:20 11/28/16 14:20 PT/INR, D-dimer PT 12.0 sec (9.0-12.0) 11/28/16 14:20 INR 1.2 (<1.1) 11/28/16 14:20 Abnormal lab findings: Abnormal Labs 11/28/16 11/28/16 11/28/16 14:20 14:20 14:20 Hct 54.4 H Plt Count 139 L Lymphocytes # 0.7 L Sodium 135 L Chloride 93 L Carbon Dioxide 33 H BUN 26 H Creatinine 1.28 H Glucose 154 H POC Glucose (mg/dL) Hemoglobin A1c Total Creatine Kinase CK-MB (CK-2) Troponin I 0.041 H* 11/28/16 11/28/16 11/28/16 14:20 19:58 20:36 Hct Plt Count Lymphocytes # Sodium Chloride Carbon Dioxide BUN Creatinine Glucose POC Glucose (mg/dL) 348 H Hemoglobin A1c Total Creatine Kinase 299 H 277 H CK-MB (CK-2) Troponin I 11/29/16 11/29/16 11/29/16 02:57 02:57 06:10 Hct Plt Count Lymphocytes # Sodium Chloride Carbon Dioxide BUN Creatinine Glucose POC Glucose (mg/dL) 220 H Hemoglobin A1c 6.7 H Total Creatine Kinase 221 H CK-MB (CK-2) 2.8 H* Troponin I 11/29/16 11:09 Hct Plt Count Lymphocytes # Sodium Chloride Carbon Dioxide BUN Creatinine Glucose POC Glucose (mg/dL) 176 H Hemoglobin A1c Total Creatine Kinase CK-MB (CK-2) Troponin I - Diagnostic Findings Chest x-ray: image reviewed Assessment and Plan Plan: Impression: #1 Acute exacerbation of chronic obstructive pulmonary disease complicated by a large area of consolidation and possible central cavitation which may represent pneumonia. However neoplasm is not totally excluded in a patient with a smoking history. #2 Left lower lobe pneumonia. #3 History of chronic nicotine addiction, quit approximately 2 years ago. #4 Suspected obstructive sleep apnea, recent home sleep study performed. Results are pending. #5 Obesity. #6 Hypertension. #7 Hyperlipidemia. Plan: The patient was seen and evaluated by Dr. Rodriguez. His chest x-ray was removed reviewed. Infiltrate most likely represents pneumonia however we cannot exclude malignancy. We'll obtain a computed tomography scan of the chest. Will treat him for his COPD exacerbation with bronchodilators, IV Solu- Medrol, antibiotics in the form of Levaquin and Zosyn. He is on Lovenox for DVT prophylaxis. We'll continue to follow and make further recommendations based on his clinical status. Time with Patient: Greater than 30
[2016-11-29] MEDS ORDERED: RX INFO: IV CONTRAST WAS GIVEN 1 EACH MISC MISCELLANE PRN (17:41)
[2016-11-29 17:44] LABS: Glucose,Whole Blood 205 mg/dL (75-99)
[2016-11-29] MEDS ORDERED: IPRATROPIUM-ALBUTEROL 3 ML NEB INHALATION PRN (19:42)
[2016-11-29 20:35] LABS: Glucose,Whole Blood 184 mg/dL (75-99)
[2016-11-29] MEDS: DILTIAZEM CD 180 MG CAP.ER.24H PO SCH (21:38)
[2016-11-29] MEDS: ENOXAPARIN 40 MG/0.4 ML SYRINGE SQ SCH (21:38)
--- NOTE | 2016-11-29 23:00 | CT ---
EXAMINATION TYPE: CT chest w con DATE OF EXAM: 11/29/2016 8:16 PM COMPARISON: X-rays from yesterday and older study January 06, 2015. Prior CTA aorta April 17, 2013. HISTORY: Possible cavitation, pneumonia vs. neoplasm. Abnormal x-ray. CT DLP: 645.10 mGycm. Automated Exposure Control for Dose Reduction was Utilized. TECHNIQUE: CT scan of the thorax is performed following with IV Contrast, patient injected with 80 m L of Visipaque 320. FINDINGS: LUNGS: Corresponding to x-ray abnormality there is triangular shaped consolidation with air bronchogr ams involving the left upper lobe. There is additional groundglass opacity with some posterior consol idation in the lingula. More focal nodular consolidation or round atelectasis anteriorly in the lingu la is seen on axial image 37. There is small left pleural effusion with associated left basilar compr essive atelectasis. There is linear atelectasis in the right lung base posteriorly. No pneumothorax i s seen bilaterally. Tracheobronchial tree is patent. No thick walled cavitary lesion or suspicious ma ss identified. MEDIASTINUM: There are no greater than 1 cm hilar or mediastinal lymph nodes. Slightly prominent but subcentimeter prevascular lymph nodes are identified. No cardiomegaly or pericardial effusion is se en. Main pulmonary artery is dilated at 3.9 cm on axial image 29, adjacent ascending aorta measures 3.[address] finding is suggestive of underlying pulmonary artery hypertension. Some west ry artery calcification in the LAD is seen which is noted marker for coronary artery disease. OTHER: The liver is low dense suggesting fatty infiltration. Cholecystectomy clips are seen. There is 1.2 cm nodule left adrenal gland with Hounsfield units averaging 24 posterior limb, unchanged in siz e from April2013 CT thus is presumed benign. Multilevel spurring and spine is present. Small degree of bilateral gynecomastia is noted. IMPRESSION: 1. CT findings are consistent with multifocal pneumonia most prominent in the posterior inferior left upper lobe with some lingular involvement present. No suspicious mass or cavitation identified.
--- NOTE | 2016-11-29 23:28 | PN ---
DATE OF SERVICE: 11/29/2016 ATTENDING NOTE: This patient was seen and examined by me earlier today. This patient presented with multi-lobar pneumonia, sepsis, COPD exacerbation. A shade better. Bringing up blobs of sputum. There is concern about underlying malignancy on the x-ray; hence a CT scan has been ordered. Current medications include IV Levaquin and Zosyn. On examination, fever is coming down. LUNGS: Decreased breath sounds. CARDIOVASCULAR: First and second seconds normal. INVESTIGATIONS: Accu-Cheks are noted. Blood cultures pending. ASSESSMENT: 1. Multi-lobar pneumonia; suspect Gram-negative organism, present on admission, causing severe sepsis. 2. Acute on chronic obstructive pulmonary disease exacerbation in an ex-smoker, slow to respond. PLAN: CT scan of chest has been ordered to rule out malignancy. Continue with antibiotics. Send sputum for Gram stain and culture.
[2016-11-30] MEDS: PIPERACILLIN-TAZOBACTAM 3.375 GM in DEXTROSE/WATER 1 50ML.BAG IVPB SCH ×3 (03:12→16:31)
[2016-11-30 07:46] LABS: Glucose,Whole Blood 188 mg/dL (75-99)
[2016-11-30] MEDS: INSULIN LISPRO (humaLOG) 300 UNIT/3 ML VIAL SQ SCH ×4 (08:11→20:57)
[2016-11-30] MEDS: ASPIRIN 325 MG TAB PO SCH (08:11)
[2016-11-30] MEDS: methylPREDNISolone SOD SUCCI 40 MG/ML 1 ML VIAL IV SCH ×2 (08:11→20:57)
[2016-11-30] MEDS: IPRATROPIUM-ALBUTEROL 3 ML NEB INHALATION SCH ×4 (08:37→21:02)
--- NOTE | 2016-11-30 10:56 | P.PN ---
Subjective Principal diagnosis: Pneumonia, abnormal troponins This patient is admitted with cough, fever and findings consistent with a multilobular pneumonia. A computed tomography scan also confirmed the presence of pneumonia. Patient is on antibiotic and seemed to be feeling better. No complaints of any chest pain or shortness of breath. I'll recommend continuation of current medical therapy. Follow up as an outpatient after completion of pneumonia treatment. Outpatient stress test will be considered Objective - Vital Signs Vital signs: Vital Signs Temp 97.9 F 11/30/16 08:23 Pulse 88 11/30/16 08:47 Resp 18 11/30/16 08:23 BP 120/75 11/30/16 08:23 Pulse Ox 91 L 11/30/16 08:23 Intake & Output 11/29/16 11/30/16 11/30/16 18:59 06:59 18:59 Intake Total 650 1080 Balance 650 1080 Weight 136.078 kg Intake: Intake, IV Titration 50 Amount Piperacillin-Tazobactam 3 50 .375 gm In Dextrose/Water 1 50ml.bag @ 12.5 mls/hr IVPB Q8HR [facility] Rx#: [id number] Oral 600 1080 Other: Voiding Method Urinal Urinal # Voids 3 2 # Bowel Movements 1 - Exam GENERAL EXAM: Patient is alert and oriented and doesn't appear to be in any acute distress HEENT: Normocephalic. Normal reaction of pupils, equal size, normal range of extraocular motion. No erythema or exudates in the throat. NECK: No masses, no nuchal rigidity. CHEST: No chest wall deformity. LUNGS: Equal air entry with no crackles or wheeze. HEART: S1 and S2 normal with no audible mumurs or gallops. Regular rhythm, femorals equal on both sides.. ABDOMEN: No hepatosplenomegaly, normal bowel sounds, no guarding or rigidity. SKIN: No rashes CENTRAL NERVOUS SYSTEM: No focal deficits. EXTREMITIES: No cyanosis, clubbing or edema. - Labs CBC & Chem 7: 11/28/16 14:20 11/28/16 14:20 Labs: Abnormal Lab Results - Last 24 Hours (Table) 11/29/16 11/29/16 11/29/16 Range/Units 02:57 11:09 17:36 POC Glucose (mg/dL) 176 H 205 H (75-99) mg/dL Hemoglobin A1c 6.7 H (4.2-6.1) % 11/29/16 11/30/16 Range/Units 20:20 07:24 POC Glucose (mg/dL) 184 H 188 H (75-99) mg/dL Hemoglobin A1c (4.2-6.1) % Microbiology - Last 24 Hours (Table) 11/28/16 14:20 Blood Culture - Preliminary Blood No Growth after 24 hours Assessment and Plan (1) Community acquired pneumonia Status: Acute (2) Elevated troponin Status: Acute (3) Acute exacerbation of chronic obstructive airways disease Status: Acute Plan: Patient is feeling better. The computed tomography scan also confirmed presence of pneumonia. No further cardiac workup. We'll follow him as needed. Follow-up as an outpatient.
[2016-11-30 11:27] LABS: Glucose,Whole Blood 181 mg/dL (75-99)
[2016-11-30] MEDS: LEVOFLOXACIN 750MG-D5W PMX 750 MG in DEXTROSE/WATER 1 150ML.BAG IVPB SCH (15:11)
--- NOTE | 2016-11-30 16:02 | P.PN ---
Subjective Principal diagnosis: Acute left lung pneumonia This is a very pleasant 61-year-old gentleman who follows with Dr. Santo as his primary care physician. He has a history of hyperlipidemia, hypertension, chronic obstructive pulmonary disease with previous smoking history. He is also morbidly obese. He had recently undergone a [facility] home sleep study a few days back and has not heard back. The patient does have clinical features of obstructive sleep apnea. He has been seen by Dr. Rodriguez in the past. He presented here on 11/28/2016 with complaints of worsening shortness of breath, cough and congestion. His chest x-ray revealed a large area of consolidation with possible central cavitation possibly representing pneumonia versus neoplasm. There is also evidence of COPD and cardiomegaly. The patient states he did have a temperature at home he did have chills. He did present with an admission temperature of 103.6. He was tachycardic. He was hypoxic and did require 3 L/m per nasal cannula to maintain O2 saturations in the 90s. He has not been hypotensive. No leukocytosis. Lactic acid 1.5. He did have mild acute renal failure with a creatinine of 1.28. His troponin was 300. Troponins were negative. Echocardiogram did not reveal any significant abnormalities. He is seen today in consultation on the regular medical floor. He is awake and alert in no acute distress. He states he is feeling slightly better today as compared to yesterday but still short of breath with minimal exertion. He is wheezing. He has a loose nonproductive cough. No chills or night sweats. He is afebrile. The patient was seen again today in follow-up on the regular medical floor, . He is awake and alert in no acute distress. He continues with a loose nonproductive cough. He is maintaining O2 saturations in the mid 90s on 3 L/m per nasal cannula. He is afebrile. He is continued on Zosyn and Levaquin. His CT findings are consistent with multifocal pneumonia most prominent in the posterior inferior left upper lobe with some lingular involvement. No suspicious mass or cavitation was noted. Objective - Vital Signs Vital signs: Vital Signs Temp 98.0 F 11/30/16 15:33 Pulse 70 11/30/16 15:33 Resp 18 11/30/16 15:33 BP 141/80 11/30/16 15:33 Pulse Ox 94 L 11/30/16 15:33 Intake & Output 11/29/16 11/30/16 11/30/16 18:59 06:59 18:59 Intake Total 650 1080 Balance 650 1080 Weight 136.078 kg Intake: Intake, IV Titration 50 Amount Piperacillin-Tazobactam 3 50 .375 gm In Dextrose/Water 1 50ml.bag @ 12.5 mls/hr IVPB Q8HR [facility] Rx#: [id number] Oral 600 1080 Other: Voiding Method Urinal Urinal # Voids 3 2 # Bowel Movements 1 - Exam GENERAL EXAM: Alert, active, comfortable in no apparent distress. HEAD: Normocephalic. EYES: Normal reaction of pupils, equal size. NOSE: Clear with pink turbinates. THROAT: No erythema or exudates. NECK: No masses, no JVD. CHEST: No chest wall deformity. LUNGS: Equal air entry with bilateral end expiratory wheeze, few scattered rhonchi.. CVS: S1 and S2 normal with no audible mumurs, regular rhythm. ABDOMEN: No hepatosplenomegaly, normal bowel sounds, no guarding or rigidity. SPINE: No scoliosis or deformity SKIN: No rashes CENTRAL NERVOUS SYSTEM: No focal deficits, tone is normal in all 4 extremities. Extremities: There is trace peripheral edema. No clubbing, no cyanosis. Peripheral pulses are intact. - Labs CBC & Chem 7: 11/28/16 14:20 11/28/16 14:20 Labs: Abnormal Lab Results - Last 24 Hours (Table) 11/29/16 11/29/16 11/30/16 Range/Units 17:36 20:20 07:24 POC Glucose (mg/dL) 205 H 184 H 188 H (75-99) mg/dL 11/30/16 Range/Units 11:24 POC Glucose (mg/dL) 181 H (75-99) mg/dL Microbiology - Last 24 Hours (Table) 11/28/16 14:20 Blood Culture - Preliminary Blood No Growth after 24 hours Assessment and Plan Plan: Impression: #1 Acute exacerbation of chronic obstructive pulmonary disease complicated by a large area of consolidation and possible central cavitation which may represent pneumonia. 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 There is no suspicious mass or cavitating lesion noted on the CAT scan. There #2 Left lower lobe pneumonia. #3 History of chronic nicotine addiction, quit approximately 2 years ago. #4 Suspected obstructive sleep apnea, recent home sleep study performed. Results are pending. #5 Obesity. #6 Hypertension. #7 Hyperlipidemia. Plan: The patient was seen and evaluated by Dr. Rodriguez. His CAT scan of the chest was reviewed. There is no evidence of cavitary lesions or concern for neoplasm. We'll continue with his treatment of pneumonia and COPD exacerbation with bronchodilators, IV Solu-Medrol, antibiotics in the form of Levaquin and Zosyn. He is on Lovenox for DVT prophylaxis. We will increase his activity as tolerated. We'll continue to follow and make further recommendations based on his clinical status.
[2016-11-30 17:40] LABS: Glucose,Whole Blood 228 mg/dL (75-99)
--- NOTE | 2016-11-30 20:31 | PN ---
DATE OF SERVICE: 11/30/2016. PRESENTING COMPLAINT: "Not feeling well" INTERVAL HISTORY: This is a 61-year-old male who presented to emergency department with 2 days and not feeling well. Today patient is lying in bed. No acute distress noted or voiced. States he feels somewhat better. Does not feel as congested. No shortness of breath noted. Is able to ambulate to the bathroom without any difficulty. No fever. Review of systems done for constitutional, cardiovascular, GI, pulmonary, with relevant findings as above. Current medications: Zosyn IV, Levofloxacin IV, Solu-Medrol, insulin, Lovenox, aspirin, DuoNeb. PHYSICAL EXAMINATION: VITAL SIGNS: Temperature 98.0, pulse 70, respirations 18, blood pressure 141/80 oxygen saturation 94% on 3 liters nasal cannula. GENERAL APPEARANCE: Patient looks tired. However, states he feels better than he when he was admitted. Does look ill. EYES: Pupils equal. Conjunctivae normal. NECK: JVD not raised. Mass not palpable. Lungs diminished bilaterally. Respiratory effort normal, unlabored. CARDIOVASCULAR: First and second sounds noted. No edema. ABDOMEN: Soft, nontender. Liver and spleen not palpable. PSYCHIATRY: Alert and oriented x3. Mood and affect normal. INVESTIGATIONS: Chest CT multifocal pneumonia. No suspicious masses or cavitation. Blood glucose 181. ASSESSMENT: 1. Multilobar pneumonia suspect gram-negative organism, present on admission causing severe sepsis. 2. Acute on chronic obstructive pulmonary disease exacerbation in an ex-smoker, slow to respond. 3. Obesity; body mass index of 39.6. 4. Primary osteoarthritis of multiple joints, bilateral. 5. Hyperlipidemia. 6. Essential hypertension. 7. Sigmoid diverticulosis. 8. Acute renal failure, probably from acute tubular necrosis from sepsis. 9. Troponin leak likely from underlying sepsis. Doubt to be a primary cardiac cause. 10. Hyperglycemia. Need to consider diabetes type 2. PLAN: We will continue with current medication and treatment plan which includes antibiotics and nebulized breathing treatments. Sending sputum for Gram stain and culture. Will follow. Patient was seen and examined by nurse practitioner, Tamiko Beckford, and all elements of the case discussed with attending, Dr. Haley. I performed a history and physical examination of this patient and discussed the same with the dictator. I agree with the dictator's note. Any additional findings/opinions, etc. will be noted.
[2016-11-30] MEDS: ENOXAPARIN 40 MG/0.4 ML SYRINGE SQ SCH (20:56)
[2016-11-30] MEDS: DILTIAZEM CD 180 MG CAP.ER.24H PO SCH (20:57)
[2016-11-30] MEDS: MAGNESIUM OXIDE 400 MG TAB PO SCH (20:57)
[2016-11-30 20:58] LABS: Glucose,Whole Blood 164 mg/dL (75-99)
[2016-12-01] MEDS: PIPERACILLIN-TAZOBACTAM 3.375 GM in DEXTROSE/WATER 1 50ML.BAG IVPB SCH ×4 (00:19→23:16)
[2016-12-01 07:06] LABS: Glucose,Whole Blood 187 mg/dL (75-99)
[2016-12-01] MEDS: IPRATROPIUM-ALBUTEROL 3 ML NEB INHALATION SCH ×4 (07:11→19:01)
[2016-12-01] MEDS: methylPREDNISolone SOD SUCCI 40 MG/ML 1 ML VIAL IV SCH ×2 (08:02→20:53)
[2016-12-01] MEDS: INSULIN LISPRO (humaLOG) 300 UNIT/3 ML VIAL SQ SCH ×4 (08:02→20:54)
[2016-12-01] MEDS: ASPIRIN 325 MG TAB PO SCH (08:02)
[2016-12-01 11:25] LABS: Glucose,Whole Blood 217 mg/dL (75-99)
[2016-12-01] MEDS: LEVOFLOXACIN 750MG-D5W PMX 750 MG in DEXTROSE/WATER 1 150ML.BAG IVPB SCH (14:42)
--- NOTE | 2016-12-01 14:51 | P.PN ---
Subjective Principal diagnosis: Acute left lung pneumonia This is a very pleasant 61-year-old gentleman who follows with Dr. Santo as his primary care physician. He has a history of hyperlipidemia, hypertension, chronic obstructive pulmonary disease with previous smoking history. He is also morbidly obese. He had recently undergone a [facility] home sleep study a few days back and has not heard back. The patient does have clinical features of obstructive sleep apnea. He has been seen by Dr. Rodriguez in the past. He presented here on 11/28/2016 with complaints of worsening shortness of breath, cough and congestion. His chest x-ray revealed a large area of consolidation with possible central cavitation possibly representing pneumonia versus neoplasm. There is also evidence of COPD and cardiomegaly. The patient states he did have a temperature at home he did have chills. He did present with an admission temperature of 103.6. He was tachycardic. He was hypoxic and did require 3 L/m per nasal cannula to maintain O2 saturations in the 90s. He has not been hypotensive. No leukocytosis. Lactic acid 1.5. He did have mild acute renal failure with a creatinine of 1.28. His troponin was 300. Troponins were negative. Echocardiogram did not reveal any significant abnormalities. He is seen today in consultation on the regular medical floor. He is awake and alert in no acute distress. He states he is feeling slightly better today as compared to yesterday but still short of breath with minimal exertion. He is wheezing. He has a loose nonproductive cough. No chills or night sweats. He is afebrile. The patient was seen again today in follow-up on the regular medical floor, . He is awake and alert in no acute distress. He continues with a loose nonproductive cough. He is maintaining O2 saturations in the mid 90s on 3 L/m per nasal cannula. He is afebrile. He is continued on Zosyn and Levaquin. His CT findings are consistent with multifocal pneumonia most prominent in the posterior inferior left upper lobe with some lingular involvement. No suspicious mass or cavitation was noted. The patient was seen again today 12/01/2016 in follow-up on the regular medical floor. He is awake and alert in no acute distress. He continues with a loose nonproductive cough. No chills or night sweats. Today's chest x-ray is stable with some modest improvement if any in the left lung pneumonia. Clinically though he is feeling better. He is still requiring 4 L of oxygen per nasal cannula to maintain O2 saturations in the 90s. His been up ambulating in man without distress. Objective - Vital Signs Vital signs: Vital Signs Temp 97.9 F 12/01/16 07:00 Pulse 88 12/01/16 11:11 Resp 16 12/01/16 07:00 BP 127/84 12/01/16 07:00 Pulse Ox 94 L 12/01/16 07:15 Intake & Output 11/30/16 12/01/16 12/01/16 18:59 06:59 18:59 Intake Total 590 Balance 590 Intake: Oral 590 Other: Voiding Method Urinal Toilet Toilet Urinal Urinal # Voids 3 2 - Exam GENERAL EXAM: Alert, active, comfortable in no apparent distress. HEAD: Normocephalic. EYES: Normal reaction of pupils, equal size. NOSE: Clear with pink turbinates. THROAT: No erythema or exudates. NECK: No masses, no JVD. CHEST: No chest wall deformity. LUNGS: Equal air entry with bilateral end expiratory wheeze, few scattered rhonchi.. CVS: S1 and S2 normal with no audible mumurs, regular rhythm. ABDOMEN: No hepatosplenomegaly, normal bowel sounds, no guarding or rigidity. SPINE: No scoliosis or deformity SKIN: No rashes CENTRAL NERVOUS SYSTEM: No focal deficits, tone is normal in all 4 extremities. Extremities: There is trace peripheral edema. No clubbing, no cyanosis. Peripheral pulses are intact. - Labs CBC & Chem 7: 11/28/16 14:20 11/28/16 14:20 Labs: Abnormal Lab Results - Last 24 Hours (Table) 11/30/16 11/30/16 12/01/16 Range/Units 17:17 20:56 07:03 POC Glucose (mg/dL) 228 H 164 H 187 H (75-99) mg/dL 12/01/16 Range/Units 11:23 POC Glucose (mg/dL) 217 H (75-99) mg/dL Microbiology - Last 24 Hours (Table) 11/28/16 14:20 Blood Culture - Preliminary Blood No Growth after 48 hours Assessment and Plan Plan: Impression: #1 Acute exacerbation of chronic obstructive pulmonary disease complicated by a large area of consolidation and possible central cavitation which may represent pneumonia. The computed tomography scan revealed evidence consistent with multifocal pneumonia most prominent in the posterior inferior left upper lobe with some lingular involvement. There is no suspicious mass or cavitating lesion noted on the CAT scan. There is slight improvement in today's chest x- ray for significant pneumonia remains in the left lung. He is improving clinically. #2 Left lower lobe pneumonia. #3 History of chronic nicotine addiction, quit approximately 2 years ago. #4 Suspected obstructive sleep apnea, recent home sleep study performed. Results are pending. #5 Obesity. #6 Hypertension. #7 Hyperlipidemia. Plan: The patient was seen and evaluated by Dr. Rodriguez. His chest x-ray was reviewed. No significant improvement but no worsening. The patient is feeling better clinically however. We'll continue with his treatment of pneumonia and COPD exacerbation with bronchodilators, IV Solu-Medrol, antibiotics in the form of Levaquin and Zosyn. He is on Lovenox for DVT prophylaxis. We will increase his activity as tolerated. We'll continue to follow and make further recommendations based on his clinical status.
--- NOTE | 2016-12-01 16:52 | XR ---
EXAMINATION TYPE: XR chest 2V DATE OF EXAM: 12/01/2016 1:58 PM COMPARISON: 11/29/2016 TECHNIQUE: PA and lateral views submitted. HISTORY: Pneumonia FINDINGS: Cardiomegaly and hyperinflation suggestive of COPD. Chronic rib cage deformity noted. An increasing area of consolidation involving the left upper lobe. Subsegmental changes seen also at both lung bases. Lateral view suggest presence of small left pleural effusion. IMPRESSION: 1. Multifocal pneumonia. Follow-up to resolution to exclude underlying neoplasm. 2. Correlate for COPD and cardiomegaly.
[2016-12-01 17:14] LABS: Glucose,Whole Blood 205 mg/dL (75-99)
--- NOTE | 2016-12-01 18:35 | PN ---
DATE OF SERVICE: 12/01/2016 PRESENTING COMPLAINT: "Not feeling well." INTERVAL HISTORY: This is a 61-year-old male who presented to the emergency department with 2 days of not feeling well. Today patient is sitting up in bed, stating that he feels much better today. No acute distress noted or voiced. No shortness of breath noted. Patient continues with nasal cannula. No fever. Loose productive cough continues. Review of systems done for constitutional, cardiovascular, GI, pulmonary, with relevant findings as above. Current medications include: 1. Zosyn IV. 2. Levofloxacin IV. 3. Solu-Medrol. 4. Insulin. 5. Lovenox. 6. Aspirin. 7. DuoNeb. PHYSICAL EXAMINATION: VITAL SIGNS: Temperature 97.3, pulse 75, respirations 18, blood pressure 149/74, oxygen saturation 92% on 4 L nasal cannula. GENERAL APPEARANCE: Patient continues to look tired; however, he states he feels better than he did when he was admitted. EYES: Pupils equal. Conjunctivae normal. NECK: JVD not raised. Mass not palpable. LUNGS: Diminished bilaterally. RESPIRATORY: Effort normal. Mildly labored. CARDIOVASCULAR: First and second sounds noted. No edema. ABDOMEN: Soft, nontender. Liver and spleen not palpable. PSYCHIATRY: Alert and oriented x3. Mood and affect normal. INVESTIGATIONS: Chest x-ray shows multi-focal pneumonia. Blood glucose 217. ASSESSMENT: 1. Multi-lobar pneumonia; suspect Gram-negative organism, present on admission, causing severe sepsis; slow to respond. 2. Acute on chronic obstructive pulmonary disease exacerbation in an ex-smoker, slow to respond. 3. Obesity; body mass index of 39.6. 4. Primary osteoarthritis of multiple joints bilaterally. 5. Hyperlipidemia. 6. Essential hypertension. 7. Sigmoid diverticulosis. 8. Acute renal failure, probably from acute tubular necrosis from sepsis. 9. Troponin leak, likely from underlying sepsis; doubt a primary cardiac cause. 10. Hyperglycemia. Need to consider diabetes, type 2. PLAN: We will continue current medication and treatment plan, which include antibiotics Levaquin and Zosyn per pulmonary recommendations as well as nebulized bronchodilators and breathing treatments. Sputum culture sent this morning. Will await its result. Patient was seen and examined by nurse practitioner Tamiko Beckford. All elements of the case were discussed with attending, Dr. Haley.
[2016-12-01 20:37] LABS: Glucose,Whole Blood 227 mg/dL (75-99)
[2016-12-01] MEDS: ENOXAPARIN 40 MG/0.4 ML SYRINGE SQ SCH (20:53)
[2016-12-01] MEDS: DILTIAZEM CD 180 MG CAP.ER.24H PO SCH (20:53)
--- NOTE | 2016-12-01 20:58 | PN ---
DATE OF SERVICE: 11/30/2016 ATTENDING NOTE: This patient was seen and examined by me yesterday on 11/30/16. I reviewed the note of my nurse practitioner, Ms. Beckford, and discussed with her. Patient presented with multi-lobar pneumonia. Sputum production is coming down. Patient is tired. Appetite is slowly improving. His is at the bedside. Patient has been up to the bathroom. PHYSICAL EXAMINATION: LUNGS: Diminished breath sounds. Some wheezing is present. CARDIOVASCULAR: First and second sounds normal. INVESTIGATIONS: Accu-Cheks are noted. ASSESSMENT: 1. Multi-lobar pneumonia; suspect Gram-negative organism, present on admission, causing severe sepsis. Slow to respond. 2. Acute chronic obstructive pulmonary disease exacerbation in an ex-smoker, slow to respond. PLAN: Continue current medication and treatment plan, antibiotics, bronchodilators. Discussed the case with the patient's . CT scan was also noted. Will follow with Pulmonary.
--- NOTE | 2016-12-01 22:26 | PN ---
DATE OF SERVICE: 12/01/2016 ATTENDING NOTE: This patient was seen and examined by me earlier today. I reviewed the note of my nurse practitioner, Ms. Beckford, and agreed with the same. Patient was admitted with multi-lobar pneumonia. Earlier today he was coughing up quite a bit of sputum. Breathing is slowly actually improving. Did tolerate his diet. Oxygen supplemented. Current medications include IV Levaquin and Zosyn. On examination, he is afebrile. Blood pressure 140/74, pulse ox 92% on 4 L. GENERAL APPEARANCE: Sitting on the edge of the bed. Appears better. LUNGS: Bilateral decreased breath sounds. Mild crackles. CARDIOVASCULAR: First and second sounds normal. INVESTIGATIONS: No blood work from today. Sputum is pending. Blood cultures have been negative. Chest x-ray shows changes of consolidation. ASSESSMENT: 1. Multi-lobar pneumonia; suspect Gram-negative organism; present on admission, causing severe sepsis. Slow to respond. 2. Acute chronic obstructive pulmonary disease exacerbation in an ex-smoker, slow to respond. 3. Acute renal failure, probably from acute tubular necrosis from sepsis, present on admission. PLAN: Continue current medication and treatment plan. Supportive care. Repeat labs in the morning. Care was discussed with the patient. Will follow.
[2016-12-02 07:59] LABS: Glucose,Whole Blood 175 mg/dL (75-99)
[2016-12-02 08:53] LABS: Basophils % (A) 0 %; CH 30.5; CHCM 31.5; Eosinophils % (A) 0 %; HCT 54.6 % (39.0-53.0); HGB 17.4 gm/dL (13.0-17.5); Hypochromasia Slight; Luc # (Auto) 0.07; Luc % (Auto) 1; Lymphocytes # (A) 0.5 k/uL (1.0-4.8); Lymphocytes % (A) 7 %; MCHC 31.8 g/dL (31.0-37.0); MCV 97.6 fL (80.0-100.0); Mean Platelet Volume 7.2; Monocytes # (A) 0.4 k/uL (0-1.0); Monocytes % (A) 5 %; Neutrophils # (A) 6.6 k/uL (1.3-7.7); Neutrophils % (A) 87 %; RDW 14.5 % (11.5-15.5); WBC 7.7 k/uL (3.8-10.6); WBC (Perox) 7.61
[2016-12-02 09:10] LABS: Anion Gap 6 mmol/L; Blood Urea Nitrogen 34 mg/dL (9-20); Calcium 9.3 mg/dL (8.4-10.2); Carbon Dioxide 35 mmol/L (22-30); Chloride 99 mmol/L (98-107); Glucose 188 mg/dL (74-99); Non-African American GFR(MDRD) >60 (>60 ml/min/1.73 sqM); Potassium 5.4 mmol/L (3.5-5.1); Sodium 140 mmol/L (137-145)
[2016-12-02] MEDS: PIPERACILLIN-TAZOBACTAM 3.375 GM in DEXTROSE/WATER 1 50ML.BAG IVPB SCH ×3 (10:08→23:36)
[2016-12-02] MEDS: ASPIRIN 325 MG TAB PO SCH (10:09)
[2016-12-02] MEDS: methylPREDNISolone SOD SUCCI 40 MG/ML 1 ML VIAL IV SCH ×2 (10:09→21:08)
[2016-12-02] MEDS: INSULIN LISPRO (humaLOG) 300 UNIT/3 ML VIAL SQ SCH ×4 (10:09→21:09)
[2016-12-02] MEDS: IPRATROPIUM-ALBUTEROL 3 ML NEB INHALATION SCH ×4 (11:29→19:16)
[2016-12-02 12:14] LABS: Glucose,Whole Blood 115 mg/dL (75-99)
--- NOTE | 2016-12-02 14:50 | P.PN ---
Subjective Principal diagnosis: Acute left lung pneumonia This is a very pleasant 61-year-old gentleman who follows with Dr. Santo as his primary care physician. He has a history of hyperlipidemia, hypertension, chronic obstructive pulmonary disease with previous smoking history. He is also morbidly obese. He had recently undergone a [facility] home sleep study a few days back and has not heard back. The patient does have clinical features of obstructive sleep apnea. He has been seen by Dr. Rodriguez in the past. He presented here on 11/28/2016 with complaints of worsening shortness of breath, cough and congestion. His chest x-ray revealed a large area of consolidation with possible central cavitation possibly representing pneumonia versus neoplasm. There is also evidence of COPD and cardiomegaly. The patient states he did have a temperature at home he did have chills. He did present with an admission temperature of 103.6. He was tachycardic. He was hypoxic and did require 3 L/m per nasal cannula to maintain O2 saturations in the 90s. He has not been hypotensive. No leukocytosis. Lactic acid 1.5. He did have mild acute renal failure with a creatinine of 1.28. His troponin was 300. Troponins were negative. Echocardiogram did not reveal any significant abnormalities. He is seen today in consultation on the regular medical floor. He is awake and alert in no acute distress. He states he is feeling slightly better today as compared to yesterday but still short of breath with minimal exertion. He is wheezing. He has a loose nonproductive cough. No chills or night sweats. He is afebrile. The patient was seen again today in follow-up on the regular medical floor, . He is awake and alert in no acute distress. He continues with a loose nonproductive cough. He is maintaining O2 saturations in the mid 90s on 3 L/m per nasal cannula. He is afebrile. He is continued on Zosyn and Levaquin. His CT findings are consistent with multifocal pneumonia most prominent in the posterior inferior left upper lobe with some lingular involvement. No suspicious mass or cavitation was noted. The patient was seen again today 12/01/2016 in follow-up on the regular medical floor. He is awake and alert in no acute distress. He continues with a loose nonproductive cough. No chills or night sweats. Today's chest x-ray is stable with some modest improvement if any in the left lung pneumonia. Clinically though he is feeling better. He is still requiring 4 L of oxygen per nasal cannula to maintain O2 saturations in the 90s. His been up ambulating in man without distress. The patient is seen again today 12/02/2016 in follow-up on the regular medical floor. He is awake and alert in no acute distress. He's been up ambulating up and down the hallways without his oxygen on and doing quite well. He continues with a loose nonproductive cough. No chills or night sweats. Blood cultures reveal no growth to date. Sputum cultures pending. He remains covered on Levaquin and Zosyn. Objective - Vital Signs Vital signs: Vital Signs Temp 97.4 F L 12/02/16 08:31 Pulse 70 12/02/16 11:45 Resp 17 12/02/16 08:31 BP 159/80 12/02/16 08:31 Pulse Ox 92 L 12/02/16 08:31 Intake & Output 12/01/16 12/02/16 12/02/16 18:59 06:59 18:59 Intake Total 480 Balance 480 Intake: Oral 480 Other: Voiding Method Toilet Toilet Toilet Urinal Urinal Urinal # Voids 3 1 - Exam GENERAL EXAM: Alert, active, comfortable in no apparent distress. HEAD: Normocephalic. EYES: Normal reaction of pupils, equal size. NOSE: Clear with pink turbinates. THROAT: No erythema or exudates. NECK: No masses, no JVD. CHEST: No chest wall deformity. LUNGS: Equal air entry with bilateral end expiratory wheeze, few scattered rhonchi.. CVS: S1 and S2 normal with no audible mumurs, regular rhythm. ABDOMEN: No hepatosplenomegaly, normal bowel sounds, no guarding or rigidity. SPINE: No scoliosis or deformity SKIN: No rashes CENTRAL NERVOUS SYSTEM: No focal deficits, tone is normal in all 4 extremities. Extremities: There is trace peripheral edema. No clubbing, no cyanosis. Peripheral pulses are intact. - Labs CBC & Chem 7: 12/02/16 08:27 12/02/16 08:27 Labs: Abnormal Lab Results - Last 24 Hours (Table) 12/01/16 12/01/16 12/02/16 Range/Units 17:11 20:36 07:41 Hct (39.0-53.0) % Lymphocytes # (1.0-4.8) k/uL Potassium (3.5-5.1) mmol/L Carbon Dioxide (22-30) mmol/L BUN (9-20) mg/dL Glucose (74-99) mg/dL POC Glucose (mg/dL) 205 H 227 H 175 H (75-99) mg/dL 12/02/16 12/02/16 12/02/16 Range/Units 08:27 08:27 12:12 Hct 54.6 H (39.0-53.0) % Lymphocytes # 0.5 L (1.0-4.8) k/uL Potassium 5.4 H (3.5-5.1) mmol/L Carbon Dioxide 35 H (22-30) mmol/L BUN 34 H (9-20) mg/dL Glucose 188 H (74-99) mg/dL POC Glucose (mg/dL) 115 H (75-99) mg/dL Microbiology - Last 24 Hours (Table) 11/28/16 14:20 Blood Culture - Preliminary Blood No Growth after 72 hours 12/01/16 07:12 Gram Stain - Preliminary Sputum Assessment and Plan Plan: Impression: #1 Acute exacerbation of chronic obstructive pulmonary disease complicated by a large area of consolidation and possible central cavitation which may represent pneumonia. The computed tomography scan revealed evidence consistent with multifocal pneumonia most prominent in the posterior inferior left upper lobe with some lingular involvement. There is no suspicious mass or cavitating lesion noted on the CAT scan. There is slight improvement in her latest chest x -ray for significant pneumonia remains in the left lung. He is improving clinically. #2 Left lower lobe pneumonia. #3 History of chronic nicotine addiction, quit approximately 2 years ago. #4 Suspected obstructive sleep apnea, recent home sleep study performed. Results are pending. #5 Obesity. #6 Hypertension. #7 Hyperlipidemia. Plan: The patient was seen and evaluated by Dr. Rodriguez. The patient is feeling better clinically. We'll continue with his treatment of pneumonia and COPD exacerbation with bronchodilators, IV Solu-Medrol, antibiotics in the form of Levaquin and Zosyn. He is on Lovenox for DVT prophylaxis. We will increase his activity as tolerated. We will repeat a chest x-ray in the a.m. We'll continue to follow and make further recommendations based on his clinical status.
[2016-12-02] MEDS: LEVOFLOXACIN 750 MG TAB PO SCH (16:13)
[2016-12-02 17:32] LABS: Glucose,Whole Blood 209 mg/dL (75-99)
--- NOTE | 2016-12-02 19:00 | PN ---
DATE OF SERVICE: 12/02/2016. PRESENTING COMPLAINT: "Not feeling well." INTERVAL HISTORY: This is a patient who presented with multilobar pneumonia. Today the patient is sitting up in bed, states that he feels better today. Breathing is easier and is tolerating his diet. Patient has been up ambulating in the hallways with no assistance. Patient states he has had a cough with sputum production. Review of systems done for constitutional, cardiovascular, GI, pulmonary with relevant findings as above. CURRENT MEDICATIONS: 1. Zosyn 3.375 g IV piggyback q.8h. 2. Solu-Medrol 40 mg IV q.12 hours. 3. Levaquin 750 mg p.o. q.24 hours. 4. DuoNeb 0.5 mg-3 mg/3 mL solution. 2- mL inhalation q.i.d. scheduled. PHYSICAL EXAMINATION: VITAL SIGNS: Temperature 97.4 pulse 64, respirations 17, blood pressure 159/80, oxygen saturation 92% on 4L. GENERAL APPEARANCE: Patient is sitting in the bed. No acute distress noted. Patient is currently wearing oxygen. EYES: Pupils equal. Conjunctivae normal. NECK: JVD not raised. Mass not palpable. LUNGS SOUNDS: Decreased breath sounds, prolonged expiration, crackles noted to the right base. RESPIRATORY: Effort normal. CARDIOVASCULAR: First and second sounds noted. No edema. ABDOMEN: Soft, distended, nontender. Liver and spleen not palpable. PSYCHIATRY: Alert and oriented x3. Mood and affect are normal INVESTIGATIONS: White blood cell count 7.7, hemoglobin 17.4, platelets 225. Sodium 140, potassium 5.4, BUN 34, creatinine 1. ASSESSMENT: 1. Severe multilobar pneumonia, suspect gram-negative organism, present on admission, causing severe sepsis, slow to respond. 2. Acute on chronic obstructive pulmonary disease exacerbation in an ex-smoker, slow to respond. 3. Obesity; body mass index of 39.6. 4. Primary osteoarthritis of multiple joints bilaterally. 5. Hyperlipidemia. 6. Essential hypertension. 7. Sigmoid diverticulosis. 8. Acute renal failure, probably from acute tubular necrosis from sepsis. 9. Troponin leak likely from underlying sepsis, doubt a primary cardiac cause. 10. Hyperglycemia. Need to consider diabetes type 2. PLAN: We will continue current medication and treatment plan, which includes antibiotics Levaquin and Zosyn as well as nebulized bronchodilators and breathing treatments. Patient was seen and examined by Nurse Practitioner Tamiko Beckford and all the elements of the case were discussed with attending, Dr. Haley. I performed a history and physical examination of this patient and discussed the same with the dictator. I agree with the dictator's note. Any additional findings/opinions, etc. will be noted.
[2016-12-02 20:24] LABS: Glucose,Whole Blood 218 mg/dL (75-99)
[2016-12-02] MEDS: MAGNESIUM OXIDE 400 MG TAB PO SCH (21:08)
[2016-12-02] MEDS: ENOXAPARIN 40 MG/0.4 ML SYRINGE SQ SCH (21:08)
[2016-12-02] MEDS: DILTIAZEM CD 180 MG CAP.ER.24H PO SCH (21:08)
[2016-12-02] MEDS: predniSONE 20 MG TAB PO SCH (23:16)
--- NOTE | 2016-12-03 07:21 | XR ---
EXAMINATION TYPE: XR chest 2V DATE OF EXAM: 12/03/2016 6:46 AM COMPARISON: 12/01/2016 INDICATION: Pneumonia TECHNIQUE: Single frontal view of the chest is obtained. FINDINGS: The heart size is normal. The pulmonary vasculature is normal. Lingular infiltrate is present with some improvement from prior study. Correlate for resolving pneumo eloy. IMPRESSION: 1. Mild improvement of a lingular pneumonia.
--- NOTE | 2016-12-03 07:26 | PN ---
DATE OF SERVICE: 12/02/2016 ATTENDING NOTE: This patient was seen and examined by me earlier today. I reviewed the note of my nurse practitioner, Ms. Beckford. Patient admitted with multilobar pneumonia. Up to the bathroom, breathing continues to improve, coffee-ground sputum. Eating better. is at the bedside. On examination, afebrile, blood pressure 159/80, pulse ox 92% on 4 liters. On examination, respiratory effort increased. LUNGS: Diminished breath sounds. Mild wheezing. Some basilar crackles on the right base. PSYCH: Alert and oriented x3. INVESTIGATIONS: White count 7.7. Potassium 5.4. ASSESSMENT: 1. Severe multilobar pneumonia, suspect gram-negative organism, present on admission, causing severe sepsis, slow to respond. 2. Acute chronic obstructive pulmonary disease exacerbation in an ex-smoker. 3. Hyperkalemia. PLAN: Continue with IV antibiotics, nebulized bronchodilators. We will switch the patient over to p.o. prednisone. Patient probably needs another 24 to 48 hours of IV antibiotics. Told the nurse to put the patient on low potassium diet. Discussed with .
[2016-12-03] MEDS: IPRATROPIUM-ALBUTEROL 3 ML NEB INHALATION SCH ×4 (07:35→19:24)
[2016-12-03 07:39] LABS: Glucose,Whole Blood 180 mg/dL (75-99)
[2016-12-03] MEDS: PIPERACILLIN-TAZOBACTAM 3.375 GM in DEXTROSE/WATER 1 50ML.BAG IVPB SCH ×3 (08:20→23:49)
[2016-12-03] MEDS: ASPIRIN 325 MG TAB PO SCH (08:20)
[2016-12-03] MEDS: predniSONE 20 MG TAB PO SCH (08:20)
[2016-12-03] MEDS: INSULIN LISPRO (humaLOG) 300 UNIT/3 ML VIAL SQ SCH ×4 (08:20→21:11)
[2016-12-03 08:28] LABS: Anion Gap 8 mmol/L; Blood Urea Nitrogen 34 mg/dL (9-20); Calcium 9.6 mg/dL (8.4-10.2); Carbon Dioxide 33 mmol/L (22-30); Chloride 99 mmol/L (98-107); Glucose 197 mg/dL (74-99); Non-African American GFR(MDRD) >60 (>60 ml/min/1.73 sqM); Potassium 5.5 mmol/L (3.5-5.1); Sodium 140 mmol/L (137-145)
[2016-12-03 11:36] LABS: Glucose,Whole Blood 182 mg/dL (75-99)
[2016-12-03] MEDS ORDERED: SODIUM POLYSTYRENE SULFONATE 15 GM/60 ML BOTTLE PO STA (12:28)
[2016-12-03] MEDS: LEVOFLOXACIN 750 MG TAB PO SCH (12:59)
--- NOTE | 2016-12-03 14:18 | P.PN ---
Subjective This is a very pleasant 61-year-old gentleman who follows with Dr. Santo as his primary care physician. He has a history of hyperlipidemia, hypertension, chronic obstructive pulmonary disease with previous smoking history. He is also morbidly obese. He had recently undergone a [facility] home sleep study a few days back and has not heard back. The patient does have clinical features of obstructive sleep apnea. He has been seen by Dr. Rodriguez in the past. He presented here on 11/28/2016 with complaints of worsening shortness of breath, cough and congestion. His chest x-ray revealed a large area of consolidation with possible central cavitation possibly representing pneumonia versus neoplasm. There is also evidence of COPD and cardiomegaly. The patient states he did have a temperature at home he did have chills. He did present with an admission temperature of 103.6. He was tachycardic. He was hypoxic and did require 3 L/m per nasal cannula to maintain O2 saturations in the 90s. He has not been hypotensive. No leukocytosis. Lactic acid 1.5. He did have mild acute renal failure with a creatinine of 1.28. His troponin was 300. Troponins were negative. Echocardiogram did not reveal any significant abnormalities. He is seen today in consultation on the regular medical floor. He is awake and alert in no acute distress. He states he is feeling slightly better today as compared to yesterday but still short of breath with minimal exertion. He is wheezing. He has a loose nonproductive cough. No chills or night sweats. He is afebrile. The patient was seen again today in follow-up on the regular medical floor, . He is awake and alert in no acute distress. He continues with a loose nonproductive cough. He is maintaining O2 saturations in the mid 90s on 3 L/m per nasal cannula. He is afebrile. He is continued on Zosyn and Levaquin. His CT findings are consistent with multifocal pneumonia most prominent in the posterior inferior left upper lobe with some lingular involvement. No suspicious mass or cavitation was noted. The patient was seen again today 12/01/2016 in follow-up on the regular medical floor. He is awake and alert in no acute distress. He continues with a loose nonproductive cough. No chills or night sweats. Today's chest x-ray is stable with some modest improvement if any in the left lung pneumonia. Clinically though he is feeling better. He is still requiring 4 L of oxygen per nasal cannula to maintain O2 saturations in the 90s. His been up ambulating in man without distress. The patient is seen again today 12/02/2016 in follow-up on the regular medical floor. He is awake and alert in no acute distress. He's been up ambulating up and down the hallways without his oxygen on and doing quite well. He continues with a loose nonproductive cough. No chills or night sweats. Blood cultures reveal no growth to date. Sputum cultures pending. He remains covered on Levaquin and Zosyn. On 12/03/2016, the patient is being seen in follow-up. The left lung lingular pneumonia is improving and today's chest x-ray shows improvement in the left lung consolidation. Clinically the patient is less congested and short of breath. The patient is only on 2 L of oxygen nasal cannula and his oxygenation is improved and FiO2 has been weaned down. No fever. No change in mental status. Still on accommodation of Levaquin and Zosyn. Objective - Vital Signs Vital signs: Vital Signs Temp 98 F 12/02/16 22:54 Pulse 75 12/03/16 12:00 Resp 18 12/03/16 08:11 BP 139/80 12/03/16 08:11 Pulse Ox 90 L 12/03/16 08:11 Intake & Output 12/02/16 12/03/16 12/03/16 18:59 06:59 18:59 Intake Total 690 Balance 690 Intake: Intake, IV Titration 50 Amount Piperacillin-Tazobactam 3 50 .375 gm In Dextrose/Water 1 50ml.bag @ 12.5 mls/hr IVPB Q8HR [facility] Rx#: [id number] Oral 640 Other: Voiding Method Toilet Toilet Toilet Urinal # Voids 2 2 - Exam GENERAL EXAM: Alert, active, comfortable in no apparent distress. HEAD: Normocephalic. EYES: Normal reaction of pupils, equal size. NOSE: Clear with pink turbinates. THROAT: No erythema or exudates. NECK: No masses, no JVD. CHEST: No chest wall deformity. LUNGS: Equal air entry with bilateral end expiratory wheeze, few scattered rhonchi.. CVS: S1 and S2 normal with no audible mumurs, regular rhythm. ABDOMEN: No hepatosplenomegaly, normal bowel sounds, no guarding or rigidity. SPINE: No scoliosis or deformity SKIN: No rashes CENTRAL NERVOUS SYSTEM: No focal deficits, tone is normal in all 4 extremities. Extremities: There is trace peripheral edema. No clubbing, no cyanosis. Peripheral pulses are intact. - Labs CBC & Chem 7: 12/02/16 08:27 12/03/16 06:59 Labs: Abnormal Lab Results - Last 24 Hours (Table) 12/02/16 12/02/16 12/03/16 Range/Units 17:09 20:22 06:59 Potassium 5.5 H (3.5-5.1) mmol/L Carbon Dioxide 33 H (22-30) mmol/L BUN 34 H (9-20) mg/dL Glucose 197 H (74-99) mg/dL POC Glucose (mg/dL) 209 H 218 H (75-99) mg/dL 12/03/16 12/03/16 Range/Units 07:35 11:30 Potassium (3.5-5.1) mmol/L Carbon Dioxide (22-30) mmol/L BUN (9-20) mg/dL Glucose (74-99) mg/dL POC Glucose (mg/dL) 180 H 182 H (75-99) mg/dL Microbiology - Last 24 Hours (Table) 12/01/16 07:12 Gram Stain - Final Sputum Sputum Culture - Final Eva albicans 11/28/16 14:20 Blood Culture - Preliminary Blood No Growth after 96 hours Assessment and Plan Plan: Impression: #1 Acute exacerbation of chronic obstructive pulmonary disease complicated by a large area of consolidation and possible central cavitation which may represent pneumonia. The computed tomography scan revealed evidence consistent with multifocal pneumonia most prominent in the posterior inferior left upper lobe with some lingular involvement. There is no suspicious mass or cavitating lesion noted on the CAT scan. There is slight improvement in her latest chest x -ray for significant pneumonia remains in the left lung. He is improving clinically. #2 Left lower lobe pneumonia. #3 History of chronic nicotine addiction, quit approximately 2 years ago. #4 Suspected obstructive sleep apnea, recent home sleep study performed. Results are pending. #5 Obesity. #6 Hypertension. #7 Hyperlipidemia. Plan The patient has extensive left lung pneumonia involving the lingula which is improving and today's chest x-ray shows improvement in the consolidation and the patient clinically is improving and oxygenation is also improved as the patient is down to 2 L of oxygen nasal cannula. Continue Zosyn and Levaquin. Discharge planning for a.m. Doubt malignancy. Anticipate full recovery. Sleep apnea evaluation at the later stage on outpatient basis.
[2016-12-03 17:13] LABS: Glucose,Whole Blood 222 mg/dL (75-99)
--- NOTE | 2016-12-03 19:35 | PN ---
DATE OF SERVICE: 12/03/2016. PRESENTING COMPLAINT: "Not feeling well." INTERVAL HISTORY: This is a patient who presented with multilobar pneumonia. Today the patient is sitting up in bed, states he feels better today. Breathing is improved and patient is tolerating his diet. Ambulating in the hallways with no assistance and no oxygen. Continues to have a productive cough. Review of systems done for constitutional, cardiovascular, GI, pulmonary, with relevant findings as above. CURRENT MEDICATIONS: Zosyn 3.3 for 75 grams IV piggyback q.8h. Solu-Medrol 40 mg IV, Levaquin 750 mg p.o. q.24 hours, DuoNeb inhalation q.i.d. PHYSICAL EXAMINATION: VITAL SIGNS: Temperature 98.0, pulse 66, respiratory rate 20, blood pressure 143/82, oxygen saturation 92% on 2 liters nasal cannula. GENERAL APPEARANCE: Patient is sitting up on his bed wearing his oxygen, no accessory muscle use noted. No respiratory distress. EYES: Pupils equal. Conjunctivae normal. NECK: JVD not raised. Mass not palpable. Sounds decreased breath sounds, prolonged expiration and crackles noted to the right base. RESPIRATORY: Effort normal. CARDIOVASCULAR: First and second sounds noted. No edema. ABDOMEN: Soft, nontender, distended. Liver and spleen not palpable. PSYCHIATRY: Alert and oriented x3. Mood and affect are normal. INVESTIGATIONS: Sodium 140, potassium 5.5, BUN 34, creatinine 1.06, blood glucose 197. Chest x-ray mild improvement of lingular pneumonia. ASSESSMENT: 1. Severe multilobar pneumonia, suspect gram-negative organism, present on admission, causing severe sepsis, slowly improving. 2. Acute on chronic obstructive pulmonary disease exacerbation in an ex-smoker, slow to respond. 3. Obesity; body mass index of 39.6. 4. Primary osteoarthritis of multiple joints bilaterally. 5. Hyperlipidemia. 6. Essential hypertension. 7. Sigmoid diverticulosis. 8. Troponin leak likely from underlying sepsis doubt a primary cardiac cause. 9. Hyperglycemia. Need to consider diabetes type 2. 10. Hyperkalemia. PLAN: We will continue current medication and treatment plan, this includes antibiotics and nebulized bronchodilators. Patient received Kayexalate 30 grams for hyperkalemia. We will continue to monitor labs and begin the discharge planning process tomorrow. Patient was seen and examined by nurse practitioner, Tamiko Beckford, and all elements of the case discussed with attending, Dr. Haley. I performed a history and physical examination of this patient and discussed the same with the dictator. I agree with the dictator's note. Any additional findings/opinions, etc. will be noted.
[2016-12-03 20:28] LABS: Glucose,Whole Blood 203 mg/dL (75-99)
[2016-12-03] MEDS: DILTIAZEM CD 180 MG CAP.ER.24H PO SCH (21:10)
[2016-12-03] MEDS: ENOXAPARIN 40 MG/0.4 ML SYRINGE SQ SCH (21:10)
[2016-12-04 07:06] LABS: Glucose,Whole Blood 110 mg/dL (75-99)
[2016-12-04] MEDS: IPRATROPIUM-ALBUTEROL 3 ML NEB INHALATION SCH ×2 (07:13→11:12)
[2016-12-04] MEDS: INSULIN LISPRO (humaLOG) 300 UNIT/3 ML VIAL SQ SCH ×2 (07:48→12:06)
[2016-12-04] MEDS: PIPERACILLIN-TAZOBACTAM 3.375 GM in DEXTROSE/WATER 1 50ML.BAG IVPB SCH (07:56)
[2016-12-04] MEDS: ASPIRIN 325 MG TAB PO SCH (07:59)
[2016-12-04] MEDS: predniSONE 20 MG TAB PO SCH (07:59)
[2016-12-04 08:01] VITALS: BP 114/76; RESP 16; TEMP 98
[2016-12-04 08:33] LABS: Anion Gap 8 mmol/L; Blood Urea Nitrogen 35 mg/dL (9-20); Calcium 9.6 mg/dL (8.4-10.2); Carbon Dioxide 32 mmol/L (22-30); Chloride 100 mmol/L (98-107); Glucose 113 mg/dL (74-99); Non-African American GFR(MDRD) >60 (>60 ml/min/1.73 sqM); Potassium 4.6 mmol/L (3.5-5.1); Sodium 140 mmol/L (137-145)
--- NOTE | 2016-12-04 09:06 | PN ---
DATE OF SERVICE: 12/03/2016 ATTENDING NOTE: This patient was seen and examined by me yesterday on 12/03/2016. I reviewed the note from my nurse practitioner, Ms. Beckford and discussed with her. This is a patient with multilobar pneumonia, continues to get better. Sputum production is coming down. Up in the hallway. On examination, afebrile, blood pressure 143/82, pulse ox 92% on 2 L. LUNGS: Diminished breath sounds. Mild wheezing and a few crackles. PSYCH: Alert and oriented x3. No edema. INVESTIGATIONS: Potassium 5.5. ASSESSMENT: 1. Acute severe multilobar pneumonia; suspect gram-negative organism prior to admission causing severe sepsis, improving. 2. Acute chronic obstructive pulmonary disease exacerbation in an ex-smoker. 3. Hyperlipidemia. PLAN: Care was discussed with the patient and at the bedside, given a dose of Kayexalate. Repeat potassium. Encourage the patient to ambulate, recheck oxygen in the morning.
[2016-12-04 11:15] VITALS: PULSE 76
[2016-12-04 11:48] LABS: Glucose,Whole Blood 129 mg/dL (75-99)
--- NOTE | 2016-12-04 17:00 | P.PN ---
Subjective Principal diagnosis: Acute left lingular pneumonia This is a very pleasant 61-year-old gentleman who follows with Dr. Santo as his primary care physician. He has a history of hyperlipidemia, hypertension, chronic obstructive pulmonary disease with previous smoking history. He is also morbidly obese. He had recently undergone a [facility] home sleep study a few days back and has not heard back. The patient does have clinical features of obstructive sleep apnea. He has been seen by Dr. Rodriguez in the past. He presented here on 11/28/2016 with complaints of worsening shortness of breath, cough and congestion. His chest x-ray revealed a large area of consolidation with possible central cavitation possibly representing pneumonia versus neoplasm. There is also evidence of COPD and cardiomegaly. The patient states he did have a temperature at home he did have chills. He did present with an admission temperature of 103.6. He was tachycardic. He was hypoxic and did require 3 L/m per nasal cannula to maintain O2 saturations in the 90s. He has not been hypotensive. No leukocytosis. Lactic acid 1.5. He did have mild acute renal failure with a creatinine of 1.28. His troponin was 300. Troponins were negative. Echocardiogram did not reveal any significant abnormalities. He is seen today in consultation on the regular medical floor. He is awake and alert in no acute distress. He states he is feeling slightly better today as compared to yesterday but still short of breath with minimal exertion. He is wheezing. He has a loose nonproductive cough. No chills or night sweats. He is afebrile. The patient was seen again today in follow-up on the regular medical floor, . He is awake and alert in no acute distress. He continues with a loose nonproductive cough. He is maintaining O2 saturations in the mid 90s on 3 L/m per nasal cannula. He is afebrile. He is continued on Zosyn and Levaquin. His CT findings are consistent with multifocal pneumonia most prominent in the posterior inferior left upper lobe with some lingular involvement. No suspicious mass or cavitation was noted. The patient was seen again today 12/01/2016 in follow-up on the regular medical floor. He is awake and alert in no acute distress. He continues with a loose nonproductive cough. No chills or night sweats. Today's chest x-ray is stable with some modest improvement if any in the left lung pneumonia. Clinically though he is feeling better. He is still requiring 4 L of oxygen per nasal cannula to maintain O2 saturations in the 90s. His been up ambulating in man without distress. The patient is seen again today 12/02/2016 in follow-up on the regular medical floor. He is awake and alert in no acute distress. He's been up ambulating up and down the hallways without his oxygen on and doing quite well. He continues with a loose nonproductive cough. No chills or night sweats. Blood cultures reveal no growth to date. Sputum cultures pending. He remains covered on Levaquin and Zosyn. On 12/03/2016, the patient is being seen in follow-up. The left lung lingular pneumonia is improving and today's chest x-ray shows improvement in the left lung consolidation. Clinically the patient is less congested and short of breath. The patient is only on 2 L of oxygen nasal cannula and his oxygenation is improved and FiO2 has been weaned down. No fever. No change in mental status. Still on accommodation of Levaquin and Zosyn. Patient was reevaluated today on 12/04/2016, clinically he is feeling much better , chest x-ray continues to show left sided infiltrate mostly involving the lingula. Patient has no cough no wheezing no shortness of breath, apparently has been responding well to antibiotics. Again the chest x-ray showed minimal improvement if any. Patient would like to go home today, he is ready to be discharged, hence I felt that the patient could be discharged home on antibiotics in the form of Augmentin, and must have a follow-up with Dr. Rodriguez in the next 5 days may need to eventually have bronchoscopy if the improvement is not dramatic over the next couple of weeks. Clinically at least the patient is much better. And his labs were noted to be relatively unremarkable. Objective - Vital Signs Vital signs: Vital Signs Temp 98 F 12/04/16 08:00 Pulse 76 12/04/16 11:28 Resp 16 12/04/16 08:00 BP 114/76 12/04/16 08:00 Pulse Ox 92 L 12/04/16 09:06 Intake & Output 12/03/16 12/04/16 12/04/16 18:59 06:59 18:59 Intake Total 450 480 Balance 450 480 Weight 136.078 kg Intake: Intake, IV Titration 50 Amount Piperacillin-Tazobactam 3 50 .375 gm In Dextrose/Water 1 50ml.bag @ 12.5 mls/hr IVPB Q8HR [facility] Rx#: [id number] Oral 400 480 Other: Voiding Method Toilet Toilet # Voids 2 2 - Exam GENERAL EXAM: Alert, active, comfortable in no apparent distress. HEAD: Normocephalic. EYES: Normal reaction of pupils, equal size. NOSE: Clear with pink turbinates. THROAT: No erythema or exudates. NECK: No masses, no JVD. CHEST: No chest wall deformity. LUNGS: Equal air entry with bilateral end expiratory wheeze, few scattered rhonchi.. CVS: S1 and S2 normal with no audible mumurs, regular rhythm. ABDOMEN: No hepatosplenomegaly, normal bowel sounds, no guarding or rigidity. SPINE: No scoliosis or deformity SKIN: No rashes CENTRAL NERVOUS SYSTEM: No focal deficits, tone is normal in all 4 extremities. Extremities: There is trace peripheral edema. No clubbing, no cyanosis. Peripheral pulses are intact. - Labs CBC & Chem 7: 12/02/16 08:27 12/04/16 07:25 Labs: Abnormal Lab Results - Last 24 Hours (Table) 12/03/16 12/03/16 12/04/16 Range/Units 17:06 20:27 07:04 Carbon Dioxide (22-30) mmol/L BUN (9-20) mg/dL Glucose (74-99) mg/dL POC Glucose (mg/dL) 222 H 203 H 110 H (75-99) mg/dL 12/04/16 12/04/16 Range/Units 07:25 11:47 Carbon Dioxide 32 H (22-30) mmol/L BUN 35 H (9-20) mg/dL Glucose 113 H (74-99) mg/dL POC Glucose (mg/dL) 129 H (75-99) mg/dL Microbiology - Last 24 Hours (Table) 11/28/16 14:20 Blood Culture - Final Blood No Growth after 144 hours Assessment and Plan Plan: #1 Acute exacerbation of chronic obstructive pulmonary disease complicated by a large area of consolidation and possible central cavitation which may represent pneumonia. The computed tomography scan revealed evidence consistent with multifocal pneumonia most prominent in the posterior inferior left upper lobe with some lingular involvement. There is no suspicious mass or cavitating lesion noted on the CAT scan. There is slight improvement in her latest chest x -ray for significant pneumonia remains in the left lung. He is improving clinically. #2 Left lower lobe pneumonia. #3 History of chronic nicotine addiction, quit approximately 2 years ago. #4 Suspected obstructive sleep apnea, recent home sleep study performed. Results are pending. #5 Obesity. #6 Hypertension. #7 Hyperlipidemia. Recommendation: Reviewed the chest x-ray with the patient and his today, felt the patient could be discharged home and follow up on outpatient basis. Augmentin would be appropriate for the time being, and again the patient was made aware that if he does not improve much he will eventually to be bronchoscoped to make sure that were not dealing with endobronchial tumor. Time with Patient: Less than 30
--- NOTE | 2016-12-05 12:04 | DS ---
DATE OF ADMISSION: 11/28/2016 DATE OF DISCHARGE: 12/04/2016 FINAL DIAGNOSES: 1. Acute, multilobar pneumonia, suspect gram-negative organism, present on admission, causing severe sepsis and causing acute hypoxic respiratory failure. 2. Acute chronic obstructive pulmonary disease exacerbation in an ex-smoker. 3. Obesity; body mass index 39.6. 4. Primary osteoarthritis of multiple joints, bilaterally. 5. Hyperlipidemia. 6. Essential hypertension. 7. Sigmoid diverticulosis. 8. Acute renal failure from acute tubular necrosis from sepsis, present on admission. 9. Troponin leak likely from sepsis. 10. Hyperglycemia from infection. HOSPITAL COURSE: This patient presented with severe sepsis due to pneumonia, acute hypoxic respiratory failure. The patient was a smoker. The patient kept requiring oxygen actually until the last day when actually oxygen came off and by the time of discharge, patient was 92% on room air. Patient's culture otherwise remained negative. On examination, lungs decreased breath sounds. CARDIOVASCULAR: First and second sounds normal. CONSULTATION: Dr. Rodriguez and colleagues from pulmonary; Dr. Reddy from cardiology. A 2-D echo showed preserved LV function. Discharge planning more than 35 minutes. DISCHARGE MEDICATIONS: 1. Vitamin D3, 5000 units p.o. q.h.s. 2. Cardizem 180 mg q.h.s. 3. Motrin 200 mg q.6 p.r.n. 4. Magnesium oxide 250 mg q.48 hours. 5. Dulera 1 puff b.i.d. 6. Ventolin HFA 1 to 2 puffs q.6 p.r.n. 7. Augmentin 875 one tablet q.12, fourteen tablets. 8. Aspirin 81 mg daily. 9. Atrovent HFA 2 puffs q.i.d. 10. Prednisone taper. Follow up with Dr. Santo on 12/12/16. Follow up with Dr. Reddy in one week. Follow up with Dr. Rodriguez on 12/14/16. Discharge planning more than 35 minutes. Patient yet again was advised against smoking.
== END 2016-12-04 15:57 | disposition home or self-care (01) | DRG 871 ==
LOC: EC 13:09 → 4MS4W 15:24 → 6SEL 17:40 → 5MS5E 11-29 09:36
PROVIDERS: ADMIT Hospitalist; ATTEND Hospitalist
DX: A41.50 Gram-negative sepsis, unspecified (principal); J96.01 Acute respiratory failure with hypoxia; N17.0 Acute kidney failure with tubular necrosis; J18.9 Pneumonia, unspecified organism; J44.0 Chronic obstructive pulmonary disease with (acute) lower respiratory infection; J44.1 Chronic obstructive pulmonary disease with (acute) exacerbation; R65.20 Severe sepsis without septic shock; E87.5 Hyperkalemia; E66.01 Morbid (severe) obesity due to excess calories; R73.9 Hyperglycemia, unspecified; R00.0 Tachycardia, unspecified; I49.3 Ventricular premature depolarization; G47.33 Obstructive sleep apnea (adult) (pediatric); I10 Essential (primary) hypertension; I51.7 Cardiomegaly; R52 Pain, unspecified; M19.91 Primary osteoarthritis, unspecified site; K57.30 Diverticulosis of large intestine without perforation or abscess without bleeding; E78.5 Hyperlipidemia, unspecified; M47.816 Spondylosis without myelopathy or radiculopathy, lumbar region; M17.10 Unilateral primary osteoarthritis, unspecified knee; R74.8 Abnormal levels of other serum enzymes; Z87.891 Personal history of nicotine dependence; Z68.39 Body mass index [BMI] 39.0-39.9, adult; Z82.49 Family history of ischemic heart disease and other diseases of the circulatory system; Z80.3 Family history of malignant neoplasm of breast; Z87.442 Personal history of urinary calculi; Z80.6 Family history of leukemia; Z80.52 Family history of malignant neoplasm of bladder; Z82.62 Family history of osteoporosis; Z79.51 Long term (current) use of inhaled steroids; Z79.1 Long term (current) use of non-steroidal anti-inflammatories (NSAID); Z79.899 Other long term (current) drug therapy; Z87.19 Personal history of other diseases of the digestive system; Z86.19 Personal history of other infectious and parasitic diseases; Z86.010 Personal history of colon polyps; Z87.09 Personal history of other diseases of the respiratory system; Z71.3 Dietary counseling and surveillance; Z71.6 Tobacco abuse counseling; Z84.1 Family history of disorders of kidney and ureter; Z83.79 Family history of other diseases of the digestive system; Z90.49 Acquired absence of other specified parts of digestive tract
CPT/HCPCS: 36415; 71020; 71260; 80048; 80053; 80061; 82550; 82553; 83036; 83605; 83735; 83880; 84484; 85025; 85610; 85730; 87040; 87070; 87205; 93005; 93306; 94640; 94644; 94760

== ENCOUNTER 2016-12-29 20:58 | Inpatient (IN) | payer BC ==
[2016-12-29] MEDS ORDERED: PANTOPRAZOLE 40 MG/10 ML VIAL IVP STA (21:07)
[2016-12-29] MEDS ORDERED: SODIUM CHLORIDE 0.9% 500 ML IV STA (21:07)
[2016-12-29] MEDS ORDERED: ONDANSETRON 4 MG/2 ML VIAL IVP STA (21:07)
[2016-12-29] MEDS ORDERED: SODIUM CHLORIDE 0.9% 1,000 ML IV ONE (21:07)
[2016-12-29] MEDS ORDERED: SODIUM CHLORIDE 0.9% 1,000 ML IV STA (21:07)
--- NOTE | 2016-12-29 21:10 | ED ---
General Adult HPI - General Chief complaint: GI Bleed Stated complaint: low hgb Time Seen by Provider: 12/29/16 21:07 Source: patient, RN notes reviewed, old records reviewed Mode of arrival: ambulatory Limitations: no limitations - History of Present Illness Initial comments: Is is a 7-year-old male ER for evaluation for this patient presents today for evaluation of weakness. Blood in his stool, black stools history of GI bleed and decreasing hemoglobin. Patient is on blood thinners, denies abdominal pain. No nausea vomiting. Patient has no history of transfusion, this time does not follicular passed out - Related Data Home Medications Medication Instructions Recorded Confirmed Cholecalciferol [Vitamin D3] 5,000 unit PO HS 01/06/15 11/28/16 Diltiazem HCl [Cardizem] 180 mg PO HS 01/06/15 11/28/16 Ibuprofen [Motrin] 200 mg PO Q6HR PRN 11/28/16 11/28/16 Magnesium Oxide [Mag-Ox] 250 mg PO Q48H 11/28/16 11/28/16 Mometasone/Formoterol [Dulera 100 1 puff INHALATION RT-BID 11/28/16 11/28/16 Mcg/5 Mcg Inhaler] Previous Rx's Medication Instructions Recorded Albuterol Inhaler [Ventolin Hfa 1 - 2 puff INHALATION Q6HR PRN #1 12/04/16 Inhaler] inhaler Amoxic-Pot Clav 875-125Mg 1 tab PO Q12HR #14 tablet 12/04/16 [Augmentin 875-125] Aspirin 81 mg PO DAILY #1 chewable 12/04/16 Ipratropium [place] [Atrovent Hfa] 2 puff INHALATION QID #1 inhaler 12/04/16 predniSONE 10 mg PO DAILY #30 tab 12/04/16 Allergies Allergy/AdvReac Type Severity Reaction Status Date / Time No Known Allergies Allergy Verified 12/29/16 21:03 Review of Systems ROS Statement: Those systems with pertinent positive or pertinent negative responses have been documented in the HPI. ROS Other: All systems not noted in ROS Statement are negative. Past Medical History Past Medical History: Asthma, COPD, Hyperlipidemia, Hypertension, Osteoarthritis (OA) Additional Past Medical History / Comment(s): SIG DIVERTICLOSIS, ARTHRITIS TO KNEES AND LOWER BACK,djd POLYPS REMOVED/BENIGN, NEPHROLITHIASIS,emphysema, tracheobronchitis History of Any Multi-Drug Resistant Organisms: None Reported Past Surgical History: Adenoidectomy, Cholecystectomy, Tonsillectomy Additional Past Surgical History / Comment(s): COLONOSCOPY Past Anesthesia/Blood Transfusion Reactions: No Reported Reaction Past Psychological History: No Psychological Hx Reported Smoking Status: Former smoker Past Alcohol Use History: None Reported Past Drug Use History: None Reported - Past Family History Mother Family Medical History: Cancer, Hyperlipidemia, Hypertension, Myocardial Infarction ([place]), Osteoarthritis (OA), Renal Disease Additional Family Medical History / Comment(s): BREAST CANCER, BLADDER CANCER X2 , CLL, SPINAL STENOSIS, OSTEOPOROSIS Sister(s) Family Medical History: Cancer Additional Family Medical History / Comment(s): BREAST Father Family Medical History: Hyperlipidemia, Hypertension, Liver Disease, Myocardial Infarction ([place]) Additional Family Medical History / Comment(s): AAA, CARDIAC PROBLEMS General Exam Limitations: no limitations General appearance: alert, in no apparent distress Head exam: Present: atraumatic, normocephalic, normal inspection Eye exam: Present: normal appearance, PERRL, EOMI. Absent: scleral icterus, conjunctival injection, periorbital swelling ENT exam: Present: normal exam, mucous membranes moist Neck exam: Present: normal inspection. Absent: tenderness, meningismus, lymphadenopathy Respiratory exam: Present: normal lung sounds bilaterally. Absent: respiratory distress, wheezes, rales, rhonchi, stridor Cardiovascular Exam: Present: regular rate, normal rhythm, normal heart sounds. Absent: systolic murmur, diastolic murmur, rubs, gallop, clicks GI/Abdominal exam: Present: soft, normal bowel sounds. Absent: distended, tenderness, guarding, rebound, rigid Extremities exam: Present: normal inspection, full ROM, normal capillary refill. Absent: tenderness, pedal edema, joint swelling, calf tenderness Back exam: Present: normal inspection Neurological exam: Present: alert, oriented X3, CN II-XII intact Psychiatric exam: Present: normal affect, normal mood Skin exam: Present: warm, dry, intact, normal color. Absent: rash Course Vital Signs 12/29/16 21:00 Temperature 98.7 F Pulse Rate 87 Respiratory 18 Rate Blood Pressure 133/64 O2 Sat by Pulse 95 Oximetry Medical Decision Making - Medical Decision Making 61 male tear for evaluation of low hemoglobin and tarry stools. Patient hemoglobin dropped from 16-13. Patient not lightheaded dizzy or weak, does not think he can pass out. Patient be admitted for GI evaluation Disposition Clinical Impression: Gastrointestinal hemorrhage, Melena Disposition: ADMITTED IP TO THIS HOSP Condition: Fair Referrals: Nick Santo MD [Primary Care Provider] - 1-2 days
[2016-12-29 22:21] LABS: Basophils % (A) 0 %; CH 30.7; CHCM 33.1; Eosinophils # (A) 0.3 k/uL (0-0.7); Eosinophils % (A) 4 %; HCT 40.9 % (39.0-53.0); HDW 2.61; Luc # (Auto) 0.24; Luc % (Auto) 3; Lymphocytes # (A) 2.1 k/uL (1.0-4.8); Lymphocytes % (A) 29 %; MCH 30.9 pg (25.0-35.0); MCHC 33.2 g/dL (31.0-37.0); MCV 93.1 fL (80.0-100.0); Mean Platelet Volume 7.1; Monocytes # (A) 0.3 k/uL (0-1.0); Monocytes % (A) 5 %; Neutrophils % (A) 58 %; RBC 4.39 m/uL (4.30-5.90); RDW 14.6 % (11.5-15.5); WBC (Perox) 7.48
[2016-12-29 22:27] LABS: HGB 13.6 gm/dL (13.0-17.5)
[2016-12-29 22:37] LABS: ALT 69 U/L (21-72); AST 39 U/L (17-59); Alkaline Phosphatase 65 U/L (38-126); Anion Gap 10 mmol/L; Blood Urea Nitrogen 31 mg/dL (9-20); Calcium 9.4 mg/dL (8.4-10.2); Carbon Dioxide 24 mmol/L (22-30); Chloride 106 mmol/L (98-107); Glucose 118 mg/dL (74-99); Magnesium 1.9 mg/dL (1.6-2.3); Non-African American GFR(MDRD) >60 (>60 ml/min/1.73 sqM); Potassium 4.3 mmol/L (3.5-5.1); Sodium 140 mmol/L (137-145); Total Bilirubin 0.3 mg/dL (0.2-1.3)
[2016-12-29 22:40] LABS: Prothrombin Time 9.9 sec (9.0-12.0)
[2016-12-29 22:42] LABS: Creatine Kinase 81 U/L (55-170)
[2016-12-29 22:46] LABS: Partial Thromboplastin Time 22.5 sec (22.0-30.0)
[2016-12-29 22:55] LABS: Creatine Kinase MB 1.1 ng/mL (0.0-2.4); Troponin I <0.012 ng/mL (0.000-0.034)
[2016-12-29 23:18] VITALS: BMI 37.5
[2016-12-30] MEDS: metFORMIN 500 MG TAB PO SCH ×2 (07:28→17:30)
[2016-12-30 07:33] LABS: Glucose,Whole Blood 112 mg/dL (75-99)
[2016-12-30 07:53] LABS: Basophils % (A) 0 %; CH 30.6; CHCM 33.5; Eosinophils # (A) 0.3 k/uL (0-0.7); Eosinophils % (A) 5 %; HCT 38.6 % (39.0-53.0); HDW 2.79; Luc # (Auto) 0.19; Luc % (Auto) 3; Lymphocytes # (A) 1.6 k/uL (1.0-4.8); Lymphocytes % (A) 27 %; MCH 30.8 pg (25.0-35.0); MCHC 33.6 g/dL (31.0-37.0); MCV 91.7 fL (80.0-100.0); Mean Platelet Volume 6.8; Monocytes # (A) 0.3 k/uL (0-1.0); Monocytes % (A) 5 %; Neutrophils # (A) 3.4 k/uL (1.3-7.7); Neutrophils % (A) 59 %; RBC 4.21 m/uL (4.30-5.90); RDW 14.2 % (11.5-15.5); WBC 5.8 k/uL (3.8-10.6); WBC (Perox) 6.35
[2016-12-30 11:21] LABS: Glucose,Whole Blood 104 mg/dL (75-99)
[2016-12-30] MEDS: PANTOPRAZOLE 40 MG/10 ML VIAL IVP SCH (14:17)
[2016-12-30] MEDS: SODIUM CHLORIDE 0.9% 1,000 ML IV SCH ×2 (14:17→17:32)
[2016-12-30] MEDS ORDERED: ALBUTEROL NEBULIZED 2.5 MG/3 ML INHALATION PRN (14:58)
[2016-12-30 16:57] LABS: Glucose,Whole Blood 111 mg/dL (75-99)
--- NOTE | 2016-12-30 19:17 | HP ---
DATE OF ADMISSION: 12/29/2016 PRESENTING COMPLAINT: Black stool. HISTORY OF PRESENTING COMPLAINT: This very pleasant gentleman was just in the hospital not too long ago, but then admitted with multilobar pneumonia and COPD exacerbation , is doing well. Patient presented with 3 days of abdominal discomfort and black stools. Some diarrhea. Denies any fever. No nausea or vomiting. Admitted for the same. Patient does take a baby aspirin. Patient's chronic stable medical conditions include hypertension, hyperlipidemia, chronic obstructive pulmonary disease. REVIEW OF SYSTEMS: CONSTITUTIONAL: Tired. HEENT: None. RESPIRATORY: Some shortness of breath. CARDIOVASCULAR: None. GASTROINTESTINAL: As above. GENITOURINARY: None. MUSCULOSKELETAL: Aches and pains in the joints. Dermatological: None. HEMATOLOGICAL: None. LYMPHATICS: None. PSYCHIATRY: None. NEUROLOGICAL: None. Past medical history of COPD, hyperlipidemia, hypertension, osteoarthritis, sigmoid diverticulitis, arthritis, ( ) the lower back pain and nephrolithiasis. PAST SURGICAL HISTORY: Adenoidectomy, cholecystectomy, tonsillectomy. SOCIAL HISTORY: Lives with his , started smoking age 15, smoked a pack and a half a day. Quit in 2014. Family history of hyperlipidemia, hypertension, [place], breast cancer. ALLERGIES: None. HOME MEDICATIONS: 1. Metformin 1000 mg b.i.d. 2. Ruben 5 mg p.o. daily. 3. Pro-Air 2 puffs q.6 p.r.n. 4. Dulera one puff b.i.d. 5. ( ) 250 mg q8h. 6. Cardizem 180 mg q.h.s. 7. Vitamin D3 1000 mg p.o. q.h.s. 8. Aspirin 81 mg p.o. daily. ALLERGIES: None. On examination, temperature 97.9, pulse 78, respiratory rate 16, blood pressure 120/70, pulse ox 95% on room air. GENERAL APPEARANCE: Well built, BMI of 39, sitting up in the bed, not in distress. EYES: Pupils equal, conjunctivae normal. NECK: JVD not raised. Mass not palpable. RESPIRATORY: Effort normal. LUNGS: Diminished breath sounds. CARDIOVASCULAR: First and second sounds normal. No edema. ABDOMEN: Large distended, soft. Liver and spleen not palpable. LYMPHATICS: No lymph node palpable in neck or axillae. PSYCHIATRY: Alert and oriented times three. Mood and affect normal. INVESTIGATIONS: White count 5.8, hemoglobin 13. Accu-Cheks are noted. ASSESSMENT: 1. This is a patient presented with dark stools with aspirin, probably upper GI bleed. 2. Chronic obstructive pulmonary disease in an ex-smoker. 3. Obesity; body mass index 39. 4. Osteoarthritis of multiple joints, bilateral. 5. Hyperlipidemia. 6. Essential hypertension. 7. Sigmoid diverticulosis. 8. Diabetes mellitus type 2, on oral hypoglycemic. PLAN: Patient's aspirin was stopped. Patient was put on proton pump inhibitor. GI was consulted for EGD. The patient and at the bedside. Copy to Dr. Santo.
[2016-12-30] MEDS: SYMBICORT 80-4.5 MCG INHALER INHALATION SCH (20:23)
[2016-12-30] MEDS ORDERED: DILTIAZEM CD 180 MG CAP.ER.24H PO SCH (21:00)
[2016-12-30 21:24] LABS: Glucose,Whole Blood 84 mg/dL (75-99)
--- NOTE | 2016-12-30 22:29 | P.CONS ---
History of Present Illness - Reason for Consult Consult date: 12/30/16 - History of Present Illness The patient is a 61-year-old male who presented to the emergency room with the complaint of abdominal discomfort, weakness and black stools of around 3 day duration. The patient was hospitalized around 3-4 weeks ago for pneumonia and received antibiotics and steroids. He started to have black diarrheic bowel movements around 3 days ago and was evaluated in the office. His hemoglobin was noted to have drop to 13.6 from a prior baseline of 17.4 last month and was thus referred to the emergency room for further evaluation. The patient denied any dysphagia, odynophagia or hematemesis. Has black tarry stools but no hematochezia. No other GI complaints. He is due for a repeat colonoscopy later this year. Review of Systems Constitutional: Denied fever, chills or any unintentional weight loss Neurologic: No headaches, double vision or any new sensory or motor changes Cardiopulmonary: Denied any chest pains, shortness of breath or palpitations. Has history of asthma/COPD and HTN Gastrointestinal: See present illness above Endocrine: Had borderline sugar values while on steroids in the hospital last month. Denied diabetes or thyroid disease Genitourinary: No hematuria, dysuria or frequency Skin: No rashes Musculoskeletal: History of osteoarthritis Psychiatric: No anxiety or depression Past Medical History Past Medical History: Asthma, COPD, Hyperlipidemia, Hypertension, Osteoarthritis (OA) Additional Past Medical History / Comment(s): SIG DIVERTICLOSIS, ARTHRITIS TO KNEES AND LOWER BACK,djd POLYPS REMOVED/BENIGN during colonoscopy, NEPHROLITHIASIS,emphysema,tracheobronchitis History of Any Multi-Drug Resistant Organisms: None Reported Past Surgical History: Adenoidectomy, Cholecystectomy, Tonsillectomy Additional Past Surgical History / Comment(s): COLONOSCOPY 5yrs ago with polypectomy Past Anesthesia/Blood Transfusion Reactions: No Reported Reaction Past Psychological History: No Psychological Hx Reported Additional Psychological History / Comment(s): PT LIOVES WITH HIS KAT IN A SINGLE LEVEL HOME THAT HAS 2 STEPS IN FRONT OR 1 STEP THRU BACK DOOR TO GET INTO HOME.BASEMENT HAS 10 STEPS. 1 INDOOR DOG. PT INDEPENDANT. HAS A NEBULIZER. NO OUTSIDE SERVICES. Smoking Status: Former smoker - Past Family History Mother Family Medical History: Cancer, Hyperlipidemia, Hypertension, Myocardial Infarction ([place]), Osteoarthritis (OA), Renal Disease Additional Family Medical History / Comment(s): BREAST CANCER, BLADDER CANCER X2 , CLL, SPINAL STENOSIS, OSTEOPOROSIS, Leukenmia CML Sister(s) Family Medical History: Cancer Additional Family Medical History / Comment(s): BREAST Father Family Medical History: Hyperlipidemia, Hypertension, Liver Disease, Myocardial Infarction ([place]) Additional Family Medical History / Comment(s): AAA, CARDIAC PROBLEMS Medications and Allergies Home Medications Medication Instructions Recorded Confirmed Type Cholecalciferol [Vitamin D3] 5,000 unit PO HS 01/06/15 12/29/16 History Diltiazem HCl [Cardizem] 180 mg PO HS 01/06/15 12/29/16 History Magnesium Oxide [Mag-Ox] 250 mg PO Q48H 11/28/16 12/29/16 History Mometasone/Formoterol [Dulera 100 1 puff INHALATION RT-BID 11/28/16 12/29/16 History Mcg/5 Mcg Inhaler] Albuterol Sulfate [Proair Hfa] 2 puff INHALATION RT-Q6H PRN 12/29/16 12/29/16 History Empagliflozin [Jardiance] 5 mg PO DAILY 12/29/16 12/29/16 History metFORMIN HCL [Metformin HCl] 1,000 mg PO BID 12/29/16 12/29/16 History Allergies Allergy/AdvReac Type Severity Reaction Status Date / Time No Known Allergies Allergy Verified 12/29/16 21:21 Physical Exam Vitals: Vital Signs Temp Pulse Pulse Resp BP BP Pulse Ox 12/30/16 07:39 74 16 12/30/16 07:00 97.9 F 78 16 120/70 95 12/30/16 00:00 74 16 12/29/16 23:01 97.9 F 74 16 134/69 96 12/29/16 22:51 82 16 139/61 95 12/29/16 22:03 85 20 156/71 94 L 12/29/16 21:00 98.7 F 87 18 133/64 95 Intake and Output 12/29/16 12/30/16 12/30/16 22:59 06:59 14:59 Intake Total 0 Balance 0 Intake: Oral 0 Other: # Voids 3 # Bowel Movements 1 Weight 129.274 kg 129 kg 129 kg Patient Weight 12/31/16 06:59 Weight 129 kg General: Appeared stated age, very pleasant in no acute distress Head and neck: Normocephalic and atraumatic. Conjunctivae pink and sclerae not icteric. Mucous membranes moist and pink. No masses in the neck or tracheal shifts Lungs: Clear to auscultation with no dullness to percussion Heart: Regular, no abnormal sounds, murmurs, gallops or friction rubs Abdomen: Soft, no masses or organomegalies. No tenderness. Bowel sounds present Extremities: No clubbing, cyanosis or edema Neurologic: Alert and oriented 3. Cranial nerves grossly intact. No gross sensory or motor abnormalities Results CBC & Chem 7: 12/30/16 07:37 12/29/16 22:00 Labs: Abnormal Lab Results - Last 24 Hours (Table) 12/29/16 12/30/16 12/30/16 Range/Units 22:00 07:31 07:37 RBC 4.21 L (4.30-5.90) m/uL Hct 38.6 L (39.0-53.0) % BUN 31 H (9-20) mg/dL Glucose 118 H (74-99) mg/dL POC Glucose (mg/dL) 112 H (75-99) mg/dL Total Protein 6.0 L (6.3-8.2) g/dL 12/30/16 Range/Units 11:19 RBC (4.30-5.90) m/uL Hct (39.0-53.0) % BUN (9-20) mg/dL Glucose (74-99) mg/dL POC Glucose (mg/dL) 104 H (75-99) mg/dL Total Protein (6.3-8.2) g/dL Assessment and Plan Plan: 61-year-old male presenting with abdominal discomfort, tarry stools and drop in hemoglobin. The possibility of peptic ulcer disease should be considered. Other possible upper GI sources include gastritis and esophagitis especially in light of his recent pneumonia and the use of steroids and aspirin. The patient is already on PPI which would be continued. I will plan an upper endoscopy in the morning. The patient is apparently due for colonoscopy, but that can be deferred for a later date as outpatient, as the probability of finding a lower GI source of bleeding is low at this time. Further plans can be made based on his findings tomorrow and his overall course.
[2016-12-31 00:35] LABS: Basophils % (A) 1 %; CH 30.3; CHCM 32.3; Eosinophils # (A) 0.2 k/uL (0-0.7); Eosinophils % (A) 5 %; HCT 36.4 % (39.0-53.0); HDW 2.66; HGB 11.7 gm/dL (13.0-17.5); Luc % (Auto) 4; Lymphocytes # (A) 1.9 k/uL (1.0-4.8); Lymphocytes % (A) 35 %; MCH 30.2 pg (25.0-35.0); MCHC 32.1 g/dL (31.0-37.0); MCV 94.3 fL (80.0-100.0); Mean Platelet Volume 6.8; Monocytes # (A) 0.3 k/uL (0-1.0); Monocytes % (A) 6 %; Neutrophils # (A) 2.7 k/uL (1.3-7.7); Neutrophils % (A) 50 %; RBC 3.86 m/uL (4.30-5.90); RDW 14.6 % (11.5-15.5); WBC 5.4 k/uL (3.8-10.6); WBC (Perox) 5.92
[2016-12-31] MEDS: SODIUM CHLORIDE 0.9% 1,000 ML IV SCH ×2 (03:28→11:10)
[2016-12-31] MEDS ORDERED: PROPOFOL 10 MG/ML 20 ML VIAL IV ONE (07:29)
[2016-12-31] MEDS ORDERED: LIDOCAINE 1% INJ 10MG/ML (20 ML MDV) ONE (07:29)
[2016-12-31] MEDS ORDERED: IV FLUID CONTINUATION 1,000 ML IV ONE (07:32)
[2016-12-31 07:40] LABS: Basophils % (A) 0 %; CH 30.4; CHCM 32.5; Eosinophils # (A) 0.3 k/uL (0-0.7); Eosinophils % (A) 5 %; HCT 39.4 % (39.0-53.0); HDW 2.71; HGB 12.8 gm/dL (13.0-17.5); Luc # (Auto) 0.18; Luc % (Auto) 3; Lymphocytes # (A) 1.6 k/uL (1.0-4.8); Lymphocytes % (A) 25 %; MCH 30.5 pg (25.0-35.0); MCHC 32.5 g/dL (31.0-37.0); Mean Platelet Volume 6.8; Monocytes # (A) 0.3 k/uL (0-1.0); Monocytes % (A) 4 %; Neutrophils # (A) 3.9 k/uL (1.3-7.7); Neutrophils % (A) 62 %; RBC 4.19 m/uL (4.30-5.90); RDW 14.5 % (11.5-15.5); WBC 6.2 k/uL (3.8-10.6); WBC (Perox) 6.39
[2016-12-31] MEDS: SYMBICORT 80-4.5 MCG INHALER INHALATION SCH (07:47)
[2016-12-31 07:54] LABS: Anion Gap 6 mmol/L; Blood Urea Nitrogen 12 mg/dL (9-20); Calcium 8.9 mg/dL (8.4-10.2); Carbon Dioxide 29 mmol/L (22-30); Chloride 107 mmol/L (98-107); Glucose 110 mg/dL (74-99); Non-African American GFR(MDRD) >60 (>60 ml/min/1.73 sqM); Potassium 4.8 mmol/L (3.5-5.1); Sodium 142 mmol/L (137-145)
[2016-12-31 08:29] LABS: Glucose,Whole Blood 105 mg/dL (75-99)
--- NOTE | 2016-12-31 08:31 | P.PCN ---
Date of Procedure: 12/31/16 Preoperative Diagnosis: Postoperative Diagnosis: Procedure(s) Performed: Procedure: Esophagogastroduodenoscopy and biopsy. Preoperative diagnosis: GI bleeding and drop in hemoglobin. Postoperative diagnosis: 1. Very small sliding hiatal hernia with no obvious esophagitis or complicated reflux disease. 2. No mucosal tears, varices or active bleeding. 3. Mild gastritis and duodenitis with no evidence of ulcers or active bleeding. Preparation and sedation: Was provided by anesthesia. Brief clinical history: The patient is a 61-year-old male who presented to the emergency room with the complaint of abdominal discomfort, weakness and black stools of around 3-day duration. The patient was hospitalized around 3-4 weeks ago for pneumonia and received antibiotics and steroids. He started to have black, diarrheic bowel movements around 3 days ago and was evaluated in the office. His hemoglobin was noted to have drop to 13.6 from a prior baseline of 17.4 last month and was thus referred to the emergency room for further evaluation. The patient denied any dysphagia, odynophagia or hematemesis. Has black tarry stools but no hematochezia. No other GI complaints. He is due for a repeat colonoscopy later this year. The patient has been stable after admission. He has been receiving IV PPI. His hemoglobin dropped to a low of 11.7 yesterday its 12.8 this morning. The details are summarized in the history and physical and dictated consultation and progress notes. Procedure: With the patient on his left lateral decubitus position and after informed consent and adequate sedation, I passed a Olympus-GIF 160 video upper endoscope through the cricopharyngeus down the esophagus. GE junction was around 43-44 cm from the incisors and there was a very small, less than 1 cm, sliding hiatal hernia. The esophagus did not show any evidence of esophagitis or complicated reflux disease. There was no mucosal tears, varices or active bleeding. The endoscope was then advanced into the stomach which was insufflated with air and inspected in detail including the retroflex view in the cardia. Upon initial inspection, I noted what appeared to be a blood clot and floating flecks of fresh blood, however, after I lavaged the stomach thoroughly, I saw some mottling and erythema and minimal friability of the mucosa in the stomach but I did not identify any ulcer, angiectasia or any evidence of active bleeding. Pyloric channel did not show any ulcers. Duodenal bulb, post bulbar area and descending duodenum showed minimal erythema. No ulcers or active bleeding. All secretions in the duodenum throughout the exam were bilious in color. The secretions in the stomach after lavaging remained clear for the several minutes of lavaging and observation. At that point, I obtained biopsies from the antrum then the endoscope was withdrawn. The patient tolerated the procedure well. Plan: The patient was reassured. Will continue to monitor his blood count. He will be given clear liquids for the next meal then advanced to full fluids. Further plans will be made based on his course. The patient is due for colonoscopy this year, as was mentioned in the consultation, but this seems obviously an episode of upper GI bleeding that appears to be subsiding and his colonoscopy can still be performed electively as outpatient. I will discuss with you and continue to follow with you in the hospital and see him in follow- up after discharge. Implants: Indications for Procedure: Operative Findings: Description of Procedure:
[2016-12-31] MEDS ORDERED: EMPAGLIFLOZIN 5 MG PO SCH (09:00)
[2016-12-31] MEDS ORDERED: ENOXAPARIN 40 MG/0.4 ML SYRINGE SQ SCH (09:00)
[2016-12-31] MEDS: metFORMIN 500 MG TAB PO SCH (09:46)
[2016-12-31] MEDS: PANTOPRAZOLE 40 MG/10 ML VIAL IVP SCH (09:51)
[2016-12-31] MEDS ORDERED: SODIUM CHLORIDE 0.9% 1,000 ML IV SCH (10:15)
[2016-12-31 12:18] LABS: Glucose,Whole Blood 76 mg/dL (75-99)
[2016-12-31 14:36] VITALS: BP 136/66; PULSE 84; RESP 16; TEMP 98.8
--- NOTE | 2017-01-01 09:59 | DS ---
DATE OF ADMISSION: 12/29/2016 DATE OF DISCHARGE: 12/31/2016 FINAL DIAGNOSES: 1. Acute gastrointestinal bleed probably from gastritis from patient being on aspirin. 2. Chronic obstructive pulmonary disease in an ex-smoker. 3. Obesity, body mass index of 39. 4. Primary osteoarthrosis multiple joints, bilaterally. 5. Hyperlipidemia. 6. Essential hypertension. 7. Sigmoid diverticulosis. 8. Diabetes mellitus type 2 on oral hypoglycemic. HOSPITAL COURSE: This patient presented with black stools, aspirin was stopped. EGD showed some gastritis that could be the source ( ) small bowel. Patient had no further episodes. Patient's hemoglobin was stable at 12.8. Care was discussed in detail with the patient and today. Questions were answered. Patient was told to hold off aspirin for one week. DISCHARGE MEDICATIONS: 1. Vitamin D3, 5000 units p.o. q.h.s. 2. Cardizem CD 180 mg p.o. q.h.s. 3. Magnesium oxide 250 mg q.48 hours. 4. Dulera 100/5 one puff b.i.d. 5. Aspirin 81 mg daily, to start in one week. 6. ProAir 2 puffs q.6 p.r.n. 7. Jardiance 5 mg p.o. daily. 8. Metformin 1000 mg p.o. b.i.d. 9. Prilosec 20 mg b.i.d. Follow up with Dr. Hernandez in one week. Follow up with Dr. Santo in one week. CBC in one week.
--- NOTE | 2017-01-03 10:25 | CDI ---
In responding to this query, please exercise your independent professional judgment. The [facility] Coding Staff and Clinical Documentation Specialists appreciate your assistance in clarifying documentation, maintaining compliance with coding guidelines, accurately documenting patients condition and capturing severity of illness. The fact that a question is asked does not imply that any particular answer is desired or expected. Communication forms are a method of clarifying documentation and are not made part of the Legal Health Record. Thank you in advance for your clarification. Last Revision, May 2015 Marcos Becker [address] [facility] [place] [address] Documentation Clarification Form Date: 01/03/2017 10:06:00 AM From: Nichole Easley/Perir Banuelos Admit Date: 12/29/2016 9:02:00 PM Patient Name: Shant Saldaña Visit Number: [id number] Discharge Date: Dr. Aristeo Haley Documentation in the record indicates that the patient had a drop in hemoglobin. Patient history/risk factors: Patient was admitted with dark stools and found to have GI bleed probably from gastritis from being on aspirin. Lab findings: Hgb 13.6 on admission dropping to 11.7 by 12/31 and back up to 12.8 on day of discharge, Hct 40.9 on admission dropping to 36.4 on 12/31 and then back up to 39.4 on day of discharge. Vital Signs: T. 98.7, P. 87, R. 18, BP 134/69 Treatment: Patient was told to stop aspirin for one week. In your professional opinion, can you please clarify the diagnosis associated with the above findings? Other Unable to determine Please document in your progress notes and discharge summary in order to capture severity of illness and risk of mortality. Include clinical findings that support your diagnosis. FYI: Press F11 to launch patient chart. Place X here if this finding has no clinical significance, is not applicable or if you are not able to provide any additional documentation. MALCOM
--- NOTE | 2017-01-21 13:59 | DS ---
DATE OF ADMISSION: 12/28/2016 DATE OF DISCHARGE: 12/31/2016 ADDENDUM: Addendum to final diagnoses: Acute blood loss anemia from GI bleed from gastritis with patient being on aspirin. MALCOM
== END 2016-12-31 16:30 | disposition home or self-care (01) | DRG 378 ==
LOC: EC 20:58 → 5MS5E 21:02
PROVIDERS: ADMIT Hospitalist; ATTEND Hospitalist
PROC: 0DB68ZX Excision of Stomach, Via Natural or Artificial Opening Endoscopic, Diagnostic (ICD-10-PCS; principal; 2016-12-31 07:30)
DX: K29.71 Gastritis, unspecified, with bleeding (principal); D62 Acute posthemorrhagic anemia; I10 Essential (primary) hypertension; E11.9 Type 2 diabetes mellitus without complications; K44.9 Diaphragmatic hernia without obstruction or gangrene; E66.9 Obesity, unspecified; E78.5 Hyperlipidemia, unspecified; K29.80 Duodenitis without bleeding; K57.30 Diverticulosis of large intestine without perforation or abscess without bleeding; M15.9 Polyosteoarthritis, unspecified; J44.9 Chronic obstructive pulmonary disease, unspecified; Z68.39 Body mass index [BMI] 39.0-39.9, adult; Z79.82 Long term (current) use of aspirin; Z79.84 Long term (current) use of oral hypoglycemic drugs; Z79.52 Long term (current) use of systemic steroids; Z79.899 Other long term (current) drug therapy; Z87.891 Personal history of nicotine dependence; Z82.49 Family history of ischemic heart disease and other diseases of the circulatory system
CPT/HCPCS: 36415; 43239; 80048; 80053; 82272; 82550; 82553; 83735; 84484; 85025; 85610; 85730; 86850; 86900; 86901; 88305; 88342; 94640; 96361; 96374; 96375; 99285

== ENCOUNTER 2017-03-29 07:01 | Day surgery (SDC) | payer BC ==
[2017-03-27 15:51] VITALS: BMI 36.9
[~2017-03-29 07:01] MED LIST: LACTATED RINGERS 1,000 ML IV SCH; LIDOCAINE 1% 20 ML VIAL (10MG/ML) FOR IV START INTRADERMA PRN
[2017-03-29 07:34] VITALS: TEMP 97.6
[2017-03-29] MEDS ORDERED: LACTATED RINGERS 1,000 ML IV ONE (07:41)
[2017-03-29 07:42] LABS: Glucose,Whole Blood 118 mg/dL (75-99)
[2017-03-29] MEDS ORDERED: PROPOFOL 10 MG/ML 20 ML VIAL IV ONE (08:19)
--- NOTE | 2017-03-29 08:56 | P.PCN ---
Date of Procedure: 03/29/17 Procedure(s) Performed: Procedure: Total colonoscopy. Preoperative diagnosis: Screening for neoplasia, patient has history of polyps. Postoperative diagnosis: Sigmoid diverticulosis with no evidence of acute diverticulitis, strictures, polyps or cancer. Preparation: HalfLytely prep. Sedation was provided by anesthesia. Brief clinical history: The patient is a 61-year-old male who is scheduled for this evaluation because of history of polyps. His last exam was in December 2011. The patient is not having any abdominal complaints, bleeding or anemia. He was hospitalized in December of this year for black stools and drop in his hemoglobin and an upper endoscopy showed small hiatal hernia and gastritis. Procedure: With the patient on his left lateral decubitus position and after informed consent and adequate sedation, the perianal area was inspected and it did not show any fissures or fistulas. There were no masses felt on digital rectal examination. The Olympus CFQ 160L video colonoscope was then inserted in the rectum in the usual fashion and advanced to the cecum. There were multiple diverticular orifices seen scattered in the sigmoid as previously described with no evidence of acute diverticulitis or strictures. The mucosa appeared healthy. No obvious polyps or tumors were seen. I retroflexed the endoscope in the rectum before the endoscope was withdrawn. The patient tolerated the procedure well. Plan: The patient was reassured. Discussed dietary measures. He will follow up with you as planned and I recommended repeat exam in 5 years.
[2017-03-29 09:03] LABS: Glucose,Whole Blood 102 mg/dL (75-99)
[2017-03-29 09:11] VITALS: BP 138/76; PULSE 71; RESP 18
== END 2017-03-29 09:47 | disposition home or self-care (01) ==
LOC: ORWHC2ENDO 07:01
DX: Z12.11 Encounter for screening for malignant neoplasm of colon (principal); K57.30 Diverticulosis of large intestine without perforation or abscess without bleeding; Z86.010 Personal history of colon polyps; J44.9 Chronic obstructive pulmonary disease, unspecified; I10 Essential (primary) hypertension; G47.33 Obstructive sleep apnea (adult) (pediatric); J45.909 Unspecified asthma, uncomplicated; E11.9 Type 2 diabetes mellitus without complications; Z79.84 Long term (current) use of oral hypoglycemic drugs; Z79.899 Other long term (current) drug therapy
CPT/HCPCS: J2704; G0105; 45378

== ENCOUNTER → 2018-04-25 | Outpatient (CLI) | payer BC ==
[2018-04-26 03:47] LABS: ACTH 7.71 pg/mL (0.00-45.99)
[2018-04-26 04:22] LABS: Hepatitis A Antibody IgM Non-Reactive (Non-Reactive); Hepatitis B Core IgM Non-Reactive (Non-Reactive)
== END | disposition home or self-care (01) ==
LOC: LABWHC1 14:57
PROVIDERS: ATTEND Nurse Practitioner Adult Health
DX: R80.9 Proteinuria, unspecified (principal); R19.7 Diarrhea, unspecified; E27.8 Other specified disorders of adrenal gland; R74.8 Abnormal levels of other serum enzymes
CPT/HCPCS: 36415; 80074; 82024; 82088; 82384; 83835; 87045; 87046; 87324; 87328; 87329

== ENCOUNTER → 2019-07-11 | Outpatient (CLI) | payer BC ==
[2019-07-11 09:08] LABS: Basophils % (A) 1 %; Eosinophils # (A) 0.2 k/uL (0-0.7); Eosinophils % (A) 3 %; HCT 49.6 % (39.0-53.0); HGB 16.4 gm/dL (13.0-17.5); Lymphocytes # (A) 1.7 k/uL (1.0-4.8); Lymphocytes % (A) 28 %; MCH 30.7 pg (25.0-35.0); MCHC 33.1 g/dL (31.0-37.0); MCV 92.8 fL (80.0-100.0); Mean Platelet Volume 7.7; Monocytes # (A) 0.3 k/uL (0-1.0); Monocytes % (A) 4 %; Neutrophils # (A) 3.9 k/uL (1.3-7.7); Neutrophils % (A) 63 %; Platelet Count 222 k/uL (150-450); RBC 5.34 m/uL (4.30-5.90); RDW 13.6 % (11.5-15.5); WBC 6.2 k/uL (3.8-10.6)
[2019-07-11 16:10] LABS: African American GFR (CKD) 82.4 (60.0-200.0); Albumin 4.6 g/dL (3.80-4.90); Albumin/Globulin Ratio 2.3 (1.60-3.17); Anion Gap 6.2 mmol/L (4.00-12.00); BUN/Creat Ratio 16.36 Ratio (12.00-20.00); Calcium 9.7 mg/dL (8.7-10.3); Carbon Dioxide 30.8 mmol/L (21.6-31.8); Chol/HDL Ratio 4.61; LDL Cholesterol,Calculated 92.2 mg/dL (0.0-131.0); Non-African American GFR(CKD) 71.1 (60.0-200.0); Potassium 4.5 mmol/L (3.5-5.5); Total Bilirubin 0.4 mg/dL (0.2-1.2); Total Protein 6.6 g/dL (6.2-8.2); VLDL Calculation 44.8 mg/dL (5.00-40.00)
== END | disposition home or self-care (01) ==
LOC: LABWHC1 08:46
PROVIDERS: ATTEND Family Medicine
DX: E78.5 Hyperlipidemia, unspecified (principal)
CPT/HCPCS: 36415; 80053; 80061; 82550; 85025

== ENCOUNTER 2019-10-11 18:34 | Emergency (ER) | payer BC ==
[2019-10-11] MEDS ORDERED: SODIUM CHLORIDE 0.9% 500 ML 500 ML IV ONE (18:47)
[2019-10-11 19:08] LABS: Basophils % (A) 0 %; Eosinophils % (A) 1 %; HCT 47.6 % (39.0-53.0); HGB 15.9 gm/dL (13.0-17.5); Lymphocytes # (A) 1.4 k/uL (1.0-4.8); Lymphocytes % (A) 32 %; MCH 30.7 pg (25.0-35.0); MCHC 33.4 g/dL (31.0-37.0); MCV 91.9 fL (80.0-100.0); Mean Platelet Volume 7.5; Monocytes # (A) 0.4 k/uL (0-1.0); Monocytes % (A) 10 %; Neutrophils # (A) 2.3 k/uL (1.3-7.7); Neutrophils % (A) 53 %; Platelet Count 165 k/uL (150-450); RBC 5.17 m/uL (4.30-5.90); RDW 13.5 % (11.5-15.5); WBC 4.4 k/uL (3.8-10.6)
[2019-10-11 19:20] LABS: Albumin 4.2 g/dL (3.5-5.0); Calcium 8.8 mg/dL (8.4-10.2); Potassium 4.1 mmol/L (3.5-5.1); Total Bilirubin 0.4 mg/dL (0.2-1.3)
--- NOTE | 2019-10-11 19:34 | XR ---
EXAMINATION TYPE: XR chest 2V DATE OF EXAM: 10/11/2019 COMPARISON: CT chest November 29, 2016. 2 view chest x-ray December 14, 2016. HISTORY: Fever and cough. TECHNIQUE: Frontal and lateral views of the chest are obtained. FINDINGS: There is chronic parenchymal change with patchy new right infrahilar opacity suspected on frontal view less well seen on lateral view. No pleural effusion or pneumothorax seen bilaterally. Th e cardiac silhouette size remains enlarged. The osseous structures are intact. IMPRESSION: Cardiomegaly and chronic parenchymal changes with new right infrahilar acute infiltrate and/or atelectasis felt present.
[2019-10-11 20:09] VITALS: BP 153/89; PULSE 86; RESP 20; TEMP 99.7
--- NOTE | 2019-10-11 20:09 | ED ---
Fever HPI - General Chief Complaint: Fever Stated Complaint: fever, cough Time Seen by Provider: 10/11/19 18:45 Source: patient Mode of arrival: ambulatory Limitations: no limitations - History of Present Illness Initial Comments: 64-year-old male with history of COPD, diabetes, hypertension, dyslipidemia presents emergency department today for chief complaint of fever cough bodyaches. Patient states that he has had fever cough bodyaches the past day. Patient states he has baseline shortness of breath with COPD without any increase. Patient states that he feels like he has his usual breathing capacity. Patient denies any chest pressure or pain. Patient has a nausea vomiting abdominal pain or diarrhea. Patient states he was concerned he poss ibly had CoVid 19 and that is why he presented for evaluation. Upon arrival patient appears well, nontoxic, no respiratory distress. He is febrile. Oxygen saturation 93% --of which patient states he is "usually around 92%". - Related Data Home Medications Medication Instructions Recorded Confirmed Cholecalciferol [Vitamin D3 (25 5,000 unit PO HS 01/06/15 03/29/17 Mcg = 1000 Iu)] Diltiazem HCl [Cardizem] 180 mg PO HS 01/06/15 03/29/17 Magnesium Oxide [Mag-Ox] 250 mg PO DAILY 11/28/16 03/29/17 Mometasone/Formoterol [Dulera 100 1 puff INHALATION RT-BID 11/28/16 03/29/17 Mcg/5 Mcg Inhaler] Albuterol Sulfate [Proair Hfa] 2 puff INHALATION RT-Q6H PRN 12/29/16 03/29/17 metFORMIN HCL [Metformin HCl] 1,000 mg PO BID 12/29/16 03/29/17 Previous Rx's Medication Instructions Recorded Doxycycline [Vibramycin] 100 mg PO BID 7 Days #14 capsule 10/11/19 predniSONE 50 mg PO DAILY 4 Days #4 tab 10/11/19 Allergies Allergy/AdvReac Type Severity Reaction Status Date / Time No Known Allergies Allergy Verified 10/11/19 18:40 Review of Systems ROS Statement: Those systems with pertinent positive or pertinent negative responses have been documented in the HPI. ROS Other: All systems not noted in ROS Statement are negative. Past Medical History Past Medical History: Asthma, COPD, Diabetes Mellitus, GI Bleed, Hyperlipidemia, Hypertension, Osteoarthritis (OA), Pneumonia, Sleep Apnea/CPAP/BIPAP Additional Past Medical History / Comment(s): [place] PHROLITHIASIS,emphysema,tracheobronchitis, hx. colon polyps, recent pneumonia in summer-now resolved History of Any Multi-Drug Resistant Organisms: None Reported Past Surgical History: Adenoidectomy, Cholecystectomy, Tonsillectomy Additional Past Surgical History / Comment(s): COLONOSCOPY, recent EGD Past Anesthesia/Blood Transfusion Reactions: No Reported Reaction Past Psychological History: No Psychological Hx Reported Smoking Status: Former smoker - Past Family History Mother Family Medical History: Cancer, Hyperlipidemia, Hypertension, Myocardial Infarction ([place]), Osteoarthritis (OA), Renal Disease Additional Family Medical History / Comment(s): BREAST CANCER, BLADDER CANCER X2, CLL, SPINAL STENOSIS, OSTEOPOROSIS, Leukenmia CML Sister(s) Family Medical History: Cancer Additional Family Medical History / Comment(s): BREAST Father Family Medical History: Hyperlipidemia, Hypertension, Liver Disease, Myocardial Infarction ([place]) Additional Family Medical History / Comment(s): AAA, CARDIAC PROBLEMS General Exam - General Exam Comments Initial Comments: General: The patient is awake and alert, in no distress, and does not appear acutely ill. Eye: +3 mm pupils are equal, round and reactive to light, extra-ocular movements are intact. No nystagmus. There is normal conjunctiva bilaterally. No signs of icterus. No photophobia Ears, nose, mouth and throat: There are moist mucous membranes and no oral lesions. Oropharynx was not erythematous there is no tonsillar enlargement exudates or lesions. Uvula midline. Tympanic membranes are not erythematous or is no effusions bulging or retraction. No tenderness to palpation of the mastoid. No anterior cervical lymphadenopathy. Rhinorrhea, clear and bilateral nares. No tripoding, no drooling. Neck: The neck is supple, there is no tenderness or JVD. No nuchal rigidity Cardiovascular: There is a regular rate and rhythm. No murmur, rub or gallop is appreciated. Respiratory: Lungs are clear to auscultation, respirations are non-labored, breath sounds are equal. No wheezes, stridor, rales, or rhonchi. No retractions or abdominal breathing. Gastrointestinal: Soft, non-distended, non-tender abdomen without masses or organomegaly noted. There is no rebound or guarding present. Bowel sounds are unremarkable. Musculoskeletal: Normal ROM, no tenderness. Strength 5/5. Sensation intact. Radial pulses equal bilaterally 2+. Neurological: A&O x 3. CN II-XII intact grossly, There are no obvious motor or sensory deficits. Coordination appears grossly intact. Speech appears normal, no muffling. Skin: Skin is warm and dry and no rashes or lesions are noted. No extremity edema Psychiatric: Cooperative Limitations: no limitations Course Vital Signs 10/11/19 10/11/19 18:38 20:08 Temperature 100.8 F H 99.7 F H Pulse Rate 85 86 Respiratory 18 20 Rate Blood Pressure 176/102 153/89 O2 Sat by Pulse 93 L 94 L Oximetry Medical Decision Making - Medical Decision Making Very well-appearing 64-year-old male. Lungs clear. Patient oxygen saturation around 93%. Patient states this is his baseline. Patient denies any increase in shortness of breath from his typical COPD. Patient's chest x-ray revealed ri gth perihilar focal infiltrate, no leukocytosis. Patient has other upper respiratory symptoms such as congestion. I feel at this time this is likely an atypical pneumonia. No recent hospitalizations, patient is not an alcoholic. patient will be treated with doxycycline outpatient per recommendation of attending Dr. Garcia. I discussed at length the importance of quarantine for 14 days, STRICT return parameters especially for any chest pressure/difficulty breathing and PCP f/u. Patient is agreeable to discharge as well as this care plan. Discharged appearing well- no respiratory distress. - Lab Data Result diagrams: 10/11/19 18:50 10/11/19 18:50 Lab Results 10/11/19 10/11/19 10/11/19 Range/Units 18:50 18:50 18:50 WBC 4.4 (3.8-10.6) k/uL RBC 5.17 (4.30-5.90) m/uL Hgb 15.9 (13.0-17.5) gm/dL Hct 47.6 (39.0-53.0) % MCV 91.9 (80.0-100.0) fL MCH 30.7 (25.0-35.0) pg MCHC 33.4 (31.0-37.0) g/dL RDW 13.5 (11.5-15.5) % Plt Count 165 (150-450) k/uL Neutrophils % 53 % Lymphocytes % 32 % Monocytes % 10 % Eosinophils % 1 % Basophils % 0 % Neutrophils # 2.3 (1.3-7.7) k/uL Lymphocytes # 1.4 (1.0-4.8) k/uL Monocytes # 0.4 (0-1.0) k/uL Eosinophils # 0.0 (0-0.7) k/uL Basophils # 0.0 (0-0.2) k/uL Sodium 139 (137-145) mmol/L Potassium 4.1 (3.5-5.1) mmol/L Chloride 104 (98-107) mmol/L Carbon Dioxide 28 (22-30) mmol/L Anion Gap 7 mmol/L BUN 16 (9-20) mg/dL Creatinine 1.26 H (0.66-1.25) mg/dL Est GFR (CKD-EPI)AfAm 70 (>60 ml/min/1.73 sqM) Est GFR (CKD-EPI)NonAf 60 (>60 ml/min/1.73 sqM) Glucose 140 H (74-99) mg/dL Plasma Lactic Acid Renard 1.0 (0.7-2.0) mmol/L Calcium 8.8 (8.4-10.2) mg/dL Total Bilirubin 0.4 (0.2-1.3) mg/dL AST 65 H (17-59) U/L ALT 59 H (4-49) U/L Alkaline Phosphatase 71 (38-126) U/L Total Protein 7.0 (6.3-8.2) g/dL Albumin 4.2 (3.5-5.0) g/dL Disposition Clinical Impression: Fever, Cough, Pneumonia Disposition: HOME SELF-CARE Condition: Good Instructions (If sedation given, give patient instructions): Viral Pneumonia (ED), Fever in Adults (ED) Additional Instructions: Please use medication as discussed. Please follow-up with family doctor in the next 2 days, IMMEDIATE RETURN FOR WORSENING SYMPTOMS-- including shortness of breath. Please self quarantine for next 14 days. Please return to emergency room if the symptoms increase or worsen or for any other concerns. Prescriptions: predniSONE 50 mg PO DAILY 4 Days #4 tab Doxycycline [Vibramycin] 100 mg PO BID 7 Days #14 capsule Is patient prescribed a controlled substance at d/c from ED?: No Referrals: Nick Santo MD [Primary Care Provider] - 1-2 days Time of Disposition: 20:12
[2019-10-11] MEDS ORDERED: DOXYCYCLINE 100 MG CAP PO STA (20:22)
== END 2019-10-11 20:31 | disposition home or self-care (01) ==
LOC: EC 18:34
DX: J44.0 Chronic obstructive pulmonary disease with (acute) lower respiratory infection (principal); J18.9 Pneumonia, unspecified organism; E11.9 Type 2 diabetes mellitus without complications; I10 Essential (primary) hypertension; G47.30 Sleep apnea, unspecified; Z79.84 Long term (current) use of oral hypoglycemic drugs; Z79.899 Other long term (current) drug therapy; Z87.891 Personal history of nicotine dependence; Z87.01 Personal history of pneumonia (recurrent); Z90.89 Acquired absence of other organs; Z99.89 Dependence on other enabling machines and devices
CPT/HCPCS: 36415; 71046; 80053; 83605; 85025; 87040; 96360; 99283

== ENCOUNTER 2020-07-17 14:44 | Emergency (ER) | payer BC ==
[2020-07-17 15:05] VITALS: RESP 18; TEMP 98.9
[2020-07-17] MEDS ORDERED: LIDOCAINE 1% INJ 10MG/ML (20 ML MDV) SQ ONE (15:20)
--- NOTE | 2020-07-17 15:24 | ED ---
General Adult HPI - General Chief complaint: Skin/Abscess/Foreign Body Stated complaint: Cyst on butt Time Seen by Provider: 07/17/20 15:06 Source: patient, RN notes reviewed Mode of arrival: ambulatory Limitations: no limitations - History of Present Illness Initial comments: 65-year-old male with a past medical history of asthma, diabetes mellitus, hy perlipidemia, hypertension presents to the emergency room for a chief complaint of abscess of the right buttock. It about 6 days ago. About 5 days ago patient was started on Keflex by primary care. He states it was not drained at that time. Patient states he cannot sit on the area and it is painful. He denies fevers or chills.Patient has no other complaints at this time including shortness of breath, chest pain, abdominal pain, nausea or vomiting, headache, or visual changes. - Related Data Home Medications Medication Instructions Recorded Confirmed Cholecalciferol [Vitamin D3 (25 5,000 unit PO HS 01/06/15 03/29/17 Mcg = 1000 Iu)] Diltiazem HCl [Cardizem] 180 mg PO HS 01/06/15 03/29/17 Magnesium Oxide [Mag-Ox] 250 mg PO DAILY 11/28/16 03/29/17 Mometasone/Formoterol [Dulera 100 1 puff INHALATION RT-BID 11/28/16 03/29/17 Mcg-5 Mcg Inhaler] Albuterol Sulfate [Proair Hfa] 2 puff INHALATION RT-Q6H PRN 12/29/16 03/29/17 metFORMIN HCL [Metformin HCl] 1,000 mg PO BID 12/29/16 03/29/17 Previous Rx's Medication Instructions Recorded Doxycycline [Vibramycin] 100 mg PO BID 7 Days #14 capsule 10/11/19 predniSONE 50 mg PO DAILY 4 Days #4 tab 10/11/19 Allergies Allergy/AdvReac Type Severity Reaction Status Date / Time No Known Allergies Allergy Verified 10/11/19 18:40 Review of Systems ROS Statement: Those systems with pertinent positive or pertinent negative responses have been documented in the HPI. ROS Other: All systems not noted in ROS Statement are negative. Past Medical History Past Medical History: Asthma, COPD, Diabetes Mellitus, GI Bleed, Hyperlipidemia, Hypertension, Osteoarthritis (OA), Pneumonia, Sleep Apnea/CPAP/BIPAP Additional Past Medical History / Comment(s): NEPHROLITHIASIS,emphysema,tracheobronchitis, hx. colon polyps, recent pneumonia in summer-now resolved History of Any Multi-Drug Resistant Organisms: None Reported Past Surgical History: Adenoidectomy, Cholecystectomy, Tonsillectomy Additional Past Surgical History / Comment(s): COLONOSCOPY, recent EGD Past Anesthesia/Blood Transfusion Reactions: No Reported Reaction Past Psychological History: No Psychological Hx Reported Smoking Status: Never smoker Past Alcohol Use History: None Reported Past Drug Use History: None Reported - Past Family History Mother Family Medical History: Cancer, Hyperlipidemia, Hypertension, Myocardial Infarction ([place]), Osteoarthritis (OA), Renal Disease Additional Family Medical History / Comment(s): BREAST CANCER, BLADDER CANCER X2, CLL, SPINAL STENOSIS, OSTEOPOROSIS, Leukenmia CML Sister(s) Family Medical History: Cancer Additional Family Medical History / Comment(s): BREAST Father Family Medical History: Hyperlipidemia, Hypertension, Liver Disease, Myocardial Infarction ([place]) Additional Family Medical History / Comment(s): AAA, CARDIAC PROBLEMS General Exam Limitations: no limitations General appearance: alert, in no apparent distress Head exam: Present: atraumatic, normocephalic, normal inspection Eye exam: Present: normal appearance, PERRL, EOMI. Absent: scleral icterus, conjunctival injection, periorbital swelling ENT exam: Present: normal exam, mucous membranes moist Neck exam: Present: normal inspection, full ROM. Absent: tenderness, meningismus, lymphadenopathy Respiratory exam: Present: normal lung sounds bilaterally. Absent: respiratory distress, wheezes, rales, rhonchi, stridor Cardiovascular Exam: Present: regular rate, normal rhythm, normal heart sounds. Absent: systolic murmur, diastolic murmur, rubs, gallop, clicks GI/Abdominal exam: Present: soft, normal bowel sounds. Absent: distended, tenderness, guarding, rebound, rigid Back exam: Present: other (patient has a 9 cm x 10 cm area of erythema and induration of the right buttock. This does not extend into the perineal region or testicular area. This is not associated with the anus.) Course Vital Signs 07/17/20 15:00 Temperature 98.9 F Pulse Rate 71 Respiratory 18 Rate Blood Pressure 188/82 O2 Sat by Pulse 95 Oximetry Procedures - Incision & Drainage Consent Obtained: verbal consent Indication: abscess Site: buttock Size (cm): 10 Anesthetic Used: lidocaine 1% I&D Cleaning Method: Chloroprep Sterile Field Used?: Yes Scalpel Used: #11 I&D Drainage Obtained: Pus, Blood Packing: Iodoform Culture Obtained?: Yes Patient Tolerated Procedure: well, no complications Medical Decision Making - Medical Decision Making Patient has an area of erythema and induration measuring about 10 cm x 10 cm with slight fluctuance in the center. I was able to incise and drain this and large amount of purulent material was expelled. Culture was sent. Patient has been on Keflex for about 5 days. He was not started on Bactrim nor was it drained previously. At this time I did add Bactrim to the antibiotic regimen and extended patient's 7 day Rx of Keflex. I discussed doing warm compresses and sitz baths. I had a lengthy discussion with patient regarding strict return parameters. If this is not starting to improve by 24 hours of Bactrim he needs to return to the emergency room. He does have an appointment on with his primary care doctor however I discussed with him that if this is not getting better by then he needs to return to the emergency room sooner as an Sunday. Otherwise he will follow-up with primary care. He does agree to this. He will also watch for fevers. I discussed this case with attending Dr. Cazares who agrees with this assessment and treatment plan. Disposition Clinical Impression: Abscess Disposition: HOME SELF-CARE Condition: Good Instructions (If sedation given, give patient instructions): Abscess (ED), Warm Compress or Soak (ED) Additional Instructions: Please apply warm compresses or do sitz baths every couple hours. If gauze does not fall out remove it in 3 days. Follow-up with your doctor. However if symptoms are not starting to improve by Sunday return to the emergency room. Is patient prescribed a controlled substance at d/c from ED?: No Referrals: Venkat Santo MD [REFERRING] - 1-2 days Time of Disposition: 16:30
[2020-07-17] MEDS ORDERED: SULFAMETH-TMP DS STARTER PACK 2 TAB BTL PO STA (16:06)
[2020-07-17 16:37] VITALS: BP 149/93; PULSE 88
== END 2020-07-17 16:44 | disposition home or self-care (01) ==
LOC: EC 14:44
DX: L02.31 Cutaneous abscess of buttock (principal); J44.9 Chronic obstructive pulmonary disease, unspecified; E11.9 Type 2 diabetes mellitus without complications; G47.33 Obstructive sleep apnea (adult) (pediatric); Z79.84 Long term (current) use of oral hypoglycemic drugs; Z79.51 Long term (current) use of inhaled steroids; Z79.899 Other long term (current) drug therapy; Z90.49 Acquired absence of other specified parts of digestive tract; Z90.89 Acquired absence of other organs; Z99.89 Dependence on other enabling machines and devices
CPT/HCPCS: 87070; 87205; 10060; 99283; J2001

== ENCOUNTER 2020-08-19 10:47 | Day surgery (SDC) | payer BC ==
[2020-08-18 08:41] VITALS: BMI 40.4
--- NOTE | 2020-08-19 09:45 | P.GSHP ---
History of Present Illness H&P Date: 08/19/20 CHIEF COMPLAINT: Right buttock cyst HISTORY OF PRESENT ILLNESS: The patient is a 65-year-old male who presents with a history of swelling and pain along the right buttock from a chronic draining cyst. He has noted increased swelling including pain of the area for over 1 month. He has been on antibiotics without resolution of his symptoms. Now he presents for excision of right buttock cyst. PAST MEDICAL HISTORY: Please see list. PAST SURGICAL HISTORY: Please see list. MEDICATIONS: Please see list. ALLERGIES: Please see list. SOCIAL HISTORY: No illicit drug use FAMILY HISTORY: No reports of Crohn disease or ulcerative colitis. REVIEW OF ORGAN SYSTEMS: CONSTITUTIONAL: No reports of fevers or chills. GI: Denies any blood in stools or constipation. PHYSICAL EXAM: VITAL SIGNS: Stable GENERAL: Well-developed pleasant in no acute distress. HEENT: No scleral icterus. Extraocular movements grossly intact. Moist buccal mucosa. NECK: Supple without lymphadenopathy. CHEST: Unlabored respirations. Equal bilateral excursions. CARDIOVASCULAR: Regular rate and rhythm. Distal 2+ pulses. ABDOMEN: Soft, nondistended. No peritoneal signs. Moderate tenderness right lower quadrant MUSCULOSKELETAL: No clubbing, cyanosis, or edema. SKIN: Right buttock cyst ASSESSMENT: 1. Right buttock cyst PLAN: 1. Recommend proceeding robotic inguinal repair with mesh with possible bilateral approach. 2. Benefits and risks of surgical intervention was discussed including poss ibility of open technique. 3. DVT prophylaxis. 4. Antibiotic prophylaxis. Past Medical History Past Medical History: Asthma, COPD, Diabetes Mellitus, GI Bleed, Hyperlipidemia, Hypertension, Osteoarthritis (OA), Pneumonia, Prostate Disorder, Sleep Apnea/CPAP/BIPAP Additional Past Medical History / Comment(s): hx. of NEPHROLITHIASIS, uses CPAP, no recent pneumonia History of Any Multi-Drug Resistant Organisms: None Reported Past Surgical History: Adenoidectomy, Cholecystectomy, Tonsillectomy Additional Past Surgical History / Comment(s): COLONOSCOPY, recent EGD Past Anesthesia/Blood Transfusion Reactions: No Reported Reaction Smoking Status: Former smoker - Past Family History Mother Family Medical History: Cancer, Hyperlipidemia, Hypertension, Myocardial Infarction (SC), Osteoarthritis (OA), Renal Disease Additional Family Medical History / Comment(s): BREAST CANCER, BLADDER CANCER X2, CLL, SPINAL STENOSIS, OSTEOPOROSIS, Leukenmia CML Sister(s) Family Medical History: Cancer Additional Family Medical History / Comment(s): BREAST Father Family Medical History: Hyperlipidemia, Hypertension, Liver Disease, Myocardial Infarction (SC) Additional Family Medical History / Comment(s): AAA, CARDIAC PROBLEMS Medications and Allergies Home Medications Medication Instructions Recorded Confirmed Type Cholecalciferol [Vitamin D3 (25 1,000 unit PO HS 01/06/15 08/18/20 History Mcg = 1000 Iu)] Diltiazem HCl [Cardizem] 180 mg PO AC-SUPPER 01/06/15 08/18/20 History Magnesium Oxide [Mag-Ox] 250 mg PO DAILY 11/28/16 08/18/20 History Mometasone/Formoterol [Dulera 100 1 puff INHALATION RT-BID 11/28/16 08/18/20 History Mcg-5 Mcg Inhaler] Albuterol Sulfate [Proair Hfa] 2 puff INHALATION RT-Q6H PRN 12/29/16 08/18/20 History Pioglitazone [Actos] 15 mg PO DAILY 08/18/20 08/18/20 History Psyllium Husk [Metamucil] 0.4 gm PO HS 08/18/20 08/18/20 History Rosuvastatin Calcium [Crestor] 5 mg PO DAILY 08/18/20 08/18/20 History Tadalafil [Cialis] 5 mg PO HS 08/18/20 08/18/20 History Allergies Allergy/AdvReac Type Severity Reaction Status Date / Time No Known Allergies Allergy Verified 08/18/20 08:34
[~2020-08-19 10:47] MED LIST changes: +DEXAMETHASONE SOD PHOSPHATE 4 MG/ML 1 ML VIAL IV ONE; +HEPARIN SODIUM,PORCINE 5,000 UNIT/ML 1 ML VIAL SQ PRN; +HYDROmorphone 0.5 MG/0.5 ML SYRINGE IVP PRN; +LIDOCAINE 1% (10MG/ML) FOR IV START INTRADERMA PRN; -LIDOCAINE 1% 20 ML VIAL (10MG/ML) FOR IV START INTRADERMA PRN; +MIDAZOLAM 2 MG/2 ML VIAL IV PRN; +ONDANSETRON 4 MG/2 ML VIAL IVP ONE; +Pre Op ABX Message 1 EACH MISC MISCELLANE ONE
[2020-08-19 11:14] VITALS: RESP 16; TEMP 98.3
[2020-08-19 11:31] LABS: Glucose,Whole Blood 102 mg/dL (75-99)
[2020-08-19] MEDS ORDERED: diphenhydrAMINE 50 MG/ML 1 ML VIAL ONE (11:54)
[2020-08-19] MEDS ORDERED: PHENYLEPHRINE 10 MG/ML VIAL ONE (11:54)
[2020-08-19] MEDS ORDERED: SUCCINYLCHOLINE CHLORIDE VIAL 200 MG/10 ML VIAL IV ONE (11:54)
[2020-08-19] MEDS ORDERED: fentaNYL (PF) 50 MCG/ML 2 ML AMP ONE (11:54)
[2020-08-19] MEDS ORDERED: MIDAZOLAM 2 MG/2 ML VIAL ONE (11:54)
[2020-08-19] MEDS ORDERED: ePHEDrine SULFATE/0.9% NACL/PF 50 MG/5 ML SYRINGE IV ONE (11:54)
[2020-08-19] MEDS ORDERED: PROPOFOL 10 MG/ML 20 ML VIAL IV ONE (11:54)
[2020-08-19] MEDS ORDERED: LIDOCAINE 1%-EPI 1:100,000 20 ML VIAL SQ ONE (12:17)
[2020-08-19] MEDS ORDERED: SODIUM CHLORIDE 0.9% 100 ML with ceFAZolin 2,000 MG IV ONE ×2 (12:20)
--- NOTE | 2020-08-19 13:28 | P.OP ---
Date of Procedure: 08/19/20 Description of Procedure: SURGEON: IVANIA GIANG MD SUPERVISOR STAVE CUTTING: None. PREOPERATIVE DIAGNOSES: 1. Right buttock cyst 2. Chronic short for pulmonary disease 3. Hypertensive heart disease 4. Lower obstructive uropathy 5. Diabetes type 2, rar-tubqyzm-gqrbtepvr with nephropathy 6. Chronic renal disease, stage II due to diabetes 7. Obstructive sleep apnea 8. Morbid obesity due to excess calories, BMI 40.2 POSTOPERATIVE DIAGNOSES: 1. Right buttock cyst 2. Chronic short for pulmonary disease 3. Hypertensive heart disease 4. Lower obstructive uropathy 5. Diabetes type 2, tar-axkynrl-jwyayyhyw with nephropathy 6. Chronic renal disease, stage II due to diabetes 7. Obstructive sleep apnea 8. Morbid obesity due to excess calories, BMI 40.2 PROCEDURES PERFORMED: 1. Excision of deep subcutaneous right buttock cyst, 8 x 4 cm 2. Intermediate closure right buttock incision, 8-cm Anesthesia: GETA, local Estimated Blood Loss (ml): 30 Pathology: 1. Right buttock mass 2. Anaerobic and aerobic culture right buttock Condition: stable Disposition: Same-day COMPLICATIONS: None. Operative Findings: 1. Draining cyst right inferior buttock with multiple pockets with complete excision, 8 x 4 cm INDICATIONS: The patient is a 65-year-old male who presents with 1 month history of pain and swelling and drainage of a right inferior buttock cyst. This proved to treated with antibiotics and with recurrence. Benefits and risks of surgical intervention were described including bleeding, infection, seroma, pain, wound dehiscence and recurrence. Informed consent was obtained. DESCRIPTION OR PROCEDURE: Patient was brought into the operating room. After general induction, the patient was positioned in left lateral decubitus. The buttock was draped in a standard sterile fashion with Betadine. Timeout protocol was confirmed with the surgical team regarding the patient's name, procedure to be performed including preoperative medications. DVT prophylaxis was confirmed. A field block was placed with local anesthetic. An elliptical transverse incision using #15 blade was made along the marking into the dermis and subcutaneous tissue. Electro-Bovie cautery was used to enter deep into the subcutaneous tissue of the right buttock 8 x 4 cm. Active purulent drainage from the cyst including inflammation was completely excised. The tumor was excised in total. 0 Vicryl for the fascia and deep subcutaneous tissue followed 3-0 Vicryl along the subcutaneous tissue was performed. Final length incisional closure is 8-cm. The skin was cleansed and Exofin tape with liquid glue was applied for a third layer closure. The incision was covered with Optifoam dressing. At the end of the procedure, needle, sponge, and instrument count was verified correct by surgical asst. The patient was transferred into the postanesthesia care unit in stable condition. Plan - Discharge Summary Discharge Rx Participant: No New Discharge Prescriptions: New Ibuprofen [Motrin] 600 mg PO Q8HR PRN #30 tab PRN Reason: Pain Acetaminophen Tab [Tylenol Tab] 1,000 mg PO Q6HR PRN #30 tablet PRN Reason: Pain Continue Cholecalciferol [Vitamin D3 (25 Mcg = 1000 Iu)] 1,000 unit PO HS Diltiazem HCl [Cardizem] 180 mg PO AC-SUPPER Mometasone/Formoterol [Dulera 100 Mcg-5 Mcg Inhaler] 1 puff INHALATION RT-BID Magnesium Oxide [Mag-Ox] 250 mg PO DAILY Albuterol Sulfate [Proair Hfa] 2 puff INHALATION RT-Q6H PRN PRN Reason: Shortness Of Breath Rosuvastatin Calcium [Crestor] 5 mg PO DAILY Pioglitazone [Actos] 15 mg PO DAILY Tadalafil [Cialis] 5 mg PO HS Psyllium Husk [Metamucil] 0.4 gm PO HS Discharge Medication List Cholecalciferol [Vitamin D3 (25 Mcg = 1000 Iu)] 1,000 unit PO HS 01/06/15 [History] Diltiazem HCl [Cardizem] 180 mg PO AC-SUPPER 01/06/15 [History] Magnesium Oxide [Mag-Ox] 250 mg PO DAILY 11/28/16 [History] Mometasone/Formoterol [Dulera 100 Mcg-5 Mcg Inhaler] 1 puff INHALATION RT-BID 11/28/16 [History] Albuterol Sulfate [Proair Hfa] 2 puff INHALATION RT-Q6H PRN 12/29/16 [History] Pioglitazone [Actos] 15 mg PO DAILY 08/18/20 [History] Psyllium Husk [Metamucil] 0.4 gm PO HS 08/18/20 [History] Rosuvastatin Calcium [Crestor] 5 mg PO DAILY 08/18/20 [History] Tadalafil [Cialis] 5 mg PO HS 08/18/20 [History] Acetaminophen Tab [Tylenol Tab] 1,000 mg PO Q6HR PRN #30 tablet 08/19/20 [Rx] Ibuprofen [Motrin] 600 mg PO Q8HR PRN #30 tab 08/19/20 [Rx] Follow up Appointment(s)/Referral(s): Ivania Giang MD [STAFF PHYSICIAN] - 08/24/20 Patient Instructions/Handouts: Excision of Skin Lesion (DC) Activity/Diet/Wound Care/Special Instructions: AVOID SITTING ALONG RIGHT BUTTOCK. USE CUSHION DO NOT REMOVE DRESSING. NO DEEP BENDING AT THE HIPS No lifting over 10 pounds in 2 weeks, Sep 02November shower. No bath tub soaks for two weeks,Sep 02 Diet as tolerated. Notify surgeon for temperature over 101.5, increased redness along incision, increased pain along surgical site. Discharge Disposition: HOME SELF-CARE
[2020-08-19 13:30] LABS: Glucose,Whole Blood 102 mg/dL (75-99)
[2020-08-19 14:02] VITALS: BP 126/61; PULSE 78
== END 2020-08-19 14:21 | disposition home or self-care (01) ==
LOC: OR 10:47
PROVIDERS: ATTEND Surgery Plastic and Reconstructive Surgery
DX: L72.0 Epidermal cyst (principal); L98.419 Non-pressure chronic ulcer of buttock with unspecified severity; L02.31 Cutaneous abscess of buttock; J44.9 Chronic obstructive pulmonary disease, unspecified; I13.10 Hypertensive heart and chronic kidney disease without heart failure, with stage 1 through stage 4 chronic kidney disease, or unspecified chronic kidney disease; E11.22 Type 2 diabetes mellitus with diabetic chronic kidney disease; N18.2 Chronic kidney disease, stage 2 (mild); G47.33 Obstructive sleep apnea (adult) (pediatric); E66.01 Morbid (severe) obesity due to excess calories; N13.9 Obstructive and reflux uropathy, unspecified; E11.40 Type 2 diabetes mellitus with diabetic neuropathy, unspecified; E78.5 Hyperlipidemia, unspecified; M19.90 Unspecified osteoarthritis, unspecified site; Z87.19 Personal history of other diseases of the digestive system; Z87.01 Personal history of pneumonia (recurrent); Z87.438 Personal history of other diseases of male genital organs; Z99.89 Dependence on other enabling machines and devices; Z87.442 Personal history of urinary calculi; Z90.89 Acquired absence of other organs; Z90.49 Acquired absence of other specified parts of digestive tract; Z98.890 Other specified postprocedural states; Z87.891 Personal history of nicotine dependence; Z79.899 Other long term (current) drug therapy; Z79.51 Long term (current) use of inhaled steroids; Z79.84 Long term (current) use of oral hypoglycemic drugs; Z68.41 Body mass index [BMI] 40.0-44.9, adult; Z80.3 Family history of malignant neoplasm of breast; Z80.52 Family history of malignant neoplasm of bladder; Z80.6 Family history of leukemia; Z83.438 Family history of other disorder of lipoprotein metabolism and other lipidemia; Z82.49 Family history of ischemic heart disease and other diseases of the circulatory system; Z82.61 Family history of arthritis; Z84.1 Family history of disorders of kidney and ureter; Z82.69 Family history of other diseases of the musculoskeletal system and connective tissue; Z82.62 Family history of osteoporosis; Z83.79 Family history of other diseases of the digestive system
CPT/HCPCS: 88304; 87070; 87205; 87075; 11406; 12034; J2250; J0330; J1200; J1644; J1100; J2370; J2405; J0690; J3010; J2704